=== PATIENT | female | born 1955 | race African-American/Black ===

== ENCOUNTER 2017-11-04 20:56 | Inpatient (IN) | payer MEDICARE, OTHER ==
[~2017-11-04] VITALS: Ht 162.6 cm; Wt 81.3 kg
[~2017-11-04 20:56] MED LIST: 1-ME1LIQ PO; ALLO100T PO; ATOR20TA42 PO; CALC667C PO; FOLITAB6 PO; INSU100V SQ; LOSA100T PO; LYRI75CA PO; METO50TA PO; PANT40IN3 PO; RENATAB PO
[2017-11-04 20:57] VITALS: BP 195/94; PULSE 106; RESP 18; TEMP 98.8; O2SAT 97
[2017-11-04] MEDS ORDERED: SODIUM CHLOR 0.9% 1000 ML INJ 1,000 ML IV ONE (21:33)
[2017-11-04 21:43] VITALS: BP 183/91; PULSE 103; RESP 16; TEMP 100.5; O2SAT 94
--- NOTE | 2017-11-04 21:50 | PD ---
HPI Chief Complaint: Dizziness Time Seen by Provider: 21:22 Travel History International Travel<30 days: No Contact w/Intl Traveler<30days: No Traveled to known affect area: No History of Present Illness HPI 62-year-old female with end-stage renal disease on hemodialysis Monday complains of increased dizziness for approximately 2 weeks. Patient states that she does not believe that her blood is getting "completely clean" and she has felt off balance with standing. Patient states that the sensation lasts for a couple seconds and goes away. She states she is able to perform her ADLs but is having increased difficulty. States within the last week she has had episodes of diarrhea after eating and therefore she does not want to eat or drink as usual. In addition, patient states that she has had a lump on her right butt cheek approximately 2 weeks. States this lump is painful to palpation and is having difficulty with sitting because of the pain. Denies fevers or chills. Denies pain with defecation. States this started off small but has increased in size and become more painful. Patient follows Dr. Verma for her nephrology and her primary care physician will be Dr. Abbott. [facility] Past Medical History Hx Anticoagulant Therapy: No (heparin flush after dialysis) Cancer: No Cardiovascular Problems: Yes High Cholesterol: Yes Chemotherapy: No Cerebrovascular Accident: No Diabetes: Yes Patient Takes Glucophage: No Dialysis: Yes (HD MWF) Endocrine: Yes Gastrointestinal Disorders: Yes Genitourinary: No Hepatitis: No Hiatal Hernia: No Hypertension: Yes Immune Disorder: No Medical other: Yes (GAMALIEL FILTER, HX DVT GOUT) Musculoskeletal: No Neurologic: No Psychiatric: No Reproductive: No Respiratory: No Immunizations Current: Yes Thyroid Disease: No Tubal Ligation: Yes Past Surgical History Abdominal Surgery: No Body Medical Devices: GREENFILED FILTER, VENOUS GRAFT Cardiac Surgery: No Endocrine Surgery: No Eye Surgery: Yes (BILATERAL CATARACT SURGERY) Gynecologic Surgery: Yes (TUBAL LIGATION) Hysterectomy: No Joint Replacement: No Pacemaker: No Thoracic Surgery: No Other Surgery: Yes (cyst NECK, MAURISIO FISTULA) Social History Alcohol Use: No Tobacco Use: No Substance Use: No Allergies-Medications (Allergen,Severity, Reaction): Coded Allergies: Sulfa (Sulfonamide Antibiotics) (Unverified Allergy, Severe, SWELLING, HIVES, 11/04/17) Uncoded Allergies: ADHESIVE TAPE (Allergy, Intermediate, REMOVES SKIN, 01/15/14) CONFIRMED 01/15/14 Reported Meds & Prescriptions Reported Meds & Active Scripts Active Review of Systems Except as stated in HPI: all other systems reviewed are Neg Physical Exam Narrative GENERAL: Well-developed well-nourished in no apparent distress, leaning on her right side SKIN: Focused skin assessment warm/dry. Right-sided arm shunt Left mid buttocks and gluteal fold- area of induration approximately 7 cm, 1 cm area of fluctuance with central puncta. TTP. No obvious extension into the anus. HEAD: Atraumatic. Normocephalic. EYES: Pupils equal and round. No scleral icterus. No injection or drainage. ENT: No nasal bleeding or discharge. Mucous membranes pink and moist. NECK: Trachea midline. No JVD. No lymphadenopathy CARDIOVASCULAR: Regular rate and rhythm. No murmur appreciated. RESPIRATORY: No accessory muscle use. Clear to auscultation. Breath sounds equal bilaterally. GASTROINTESTINAL: Abdomen soft, non-tender, nondistended. MUSCULOSKELETAL: No obvious deformities. No clubbing. No cyanosis. No edema. NEUROLOGICAL: Awake and alert. No obvious cranial nerve deficits. Motor grossly within normal limits. Normal speech. PSYCHIATRIC: Appropriate mood and affect; insight and judgment normal. Data Data Last Documented VS Vital Signs Date Time Temp Pulse Resp B/P (MAP) Pulse Ox O2 Delivery O2 Flow Rate FiO2 11/04/17 21:43 100.5 103 16 183/91 (121) 94 Room Air Orders Orders Electrocardiogram (11/04/17 21:33) Complete Blood Count With Diff (11/04/17 21:33) Comprehensive Metabolic Panel (11/04/17 21:33) Magnesium (Mg) (11/04/17 21:33) Ckmb (Isoenzyme) Profile (11/04/17 21:33) Troponin I (11/04/17 21:33) Urinalysis - C+S If Indicated (11/04/17 21:33) Chest, Single Ap (11/04/17 21:33) Ct Brain W/O Iv Contrast(Rout) (11/04/17 21:33) Sodium Chlor 0.9% 1000 Ml Inj (Ns 1000 M (11/04/17 21:33) Influenzae A/B Antigen (11/04/17 21:50) Lactic Acid (11/04/17 21:50) Blood Culture (11/04/17 21:50) Wound Culture And Gram Stain (11/04/17 22:50) Losartan (Cozaar) (11/04/17 23:15) Amlodipine (Norvasc) (11/04/17 23:15) Acetaminophen (Tylenol) (11/04/17 23:15) Consult Nephrology (11/04/17 ) Metoprolol Tartrate (Lopressor) (11/04/17 23:15) Bedside Glucose MICHAEL.CSUGAR (11/04/17 23:12) Blood Glucose Goal (Criteria) (11/04/17 23:12) Hypoglycemia 70 Mg/Dl Or < (11/04/17 23:12) Notify Dr: Other (11/04/17 23:12) Dextrose 50% In Jason (Vial) Inj (D50w (Vi (11/04/17 23:15) Glucagon Inj (Glucagon Inj) (11/04/17 23:15) Insulin Aspart Supplemtl Scale (Novolog (11/05/17 08:00) Admit To Inpatient (11/04/17 ) Vital Signs (Adult) Q4H (11/04/17 23:12) Activity Oob Ad Sunshine (11/04/17 23:12) Manager Personnel Selection / Telemetry .CONTINUOUS (11/04/17 23:12) Intake + Output MICHAEL.QSHIFT (11/04/17 23:12) Diet Heart Healthy (11/05/17 Breakfast) Sodium Chloride 0.9% Flush (Ns Flush) (11/04/17 23:15) Sodium Chloride 0.9% Flush (Ns Flush) (11/05/17 09:00) Ondansetron Inj (Zofran Inj) (11/04/17 23:15) Comprehensive Metabolic Panel (11/05/17 06:00) Complete Blood Count With Diff (11/05/17 06:00) Heparin Inj (Heparin Inj) (11/05/17 09:00) Acetaminophen (Tylenol) (11/04/17 23:15) Acetamin-Hydrocod 325-5 Mg ([place] 5-325 (11/04/17 23:15) Acetamin-Hydrocod 325-10 Mg ([place] 10-32 (11/04/17 23:15) Docusate Sodium-Senna (Dayan-Colace) (11/05/17 09:00) Magnesium Hydroxide Liq (Milk Of Magnesi (11/04/17 23:15) Sennosides (Senokot) (11/04/17 23:15) Bisacodyl Supp (Dulcolax Supp) (11/04/17 23:15) Lactulose Liq (Lactulose Liq) (11/04/17 23:15) Inpatient Certification (11/04/17 ) Cefepime Inj (Maxipime Inj) (11/05/17 09:00) Vancomycin Inj (Vancomycin Inj) (11/04/17 23:15) Piperacil-Tazo 3.375 Gm Premix (Zosyn 3. (11/04/17 23:15) Admit Order (Ed Use Only) (11/04/17 ) Labs Laboratory Tests Test 11/04/17 21:40 11/04/17 21:50 White Blood Count 13.5 TH/MM3 Red Blood Count 4.29 MIL/MM3 Hemoglobin 12.2 GM/DL Hematocrit 39.3 % Mean Corpuscular Volume 91.6 FL Mean Corpuscular Hemoglobin 28.4 PG Mean Corpuscular Hemoglobin Concent 31.0 % Red Cell Distribution Width 15.9 % Platelet Count 229 TH/MM3 Mean Platelet Volume 9.4 FL Neutrophils (%) (Auto) 84.9 % Lymphocytes (%) (Auto) 4.3 % Monocytes (%) (Auto) 9.6 % Eosinophils (%) (Auto) 0.7 % Basophils (%) (Auto) 0.5 % Neutrophils # (Auto) 11.4 TH/MM3 Lymphocytes # (Auto) 0.6 TH/MM3 Monocytes # (Auto) 1.3 TH/MM3 Eosinophils # (Auto) 0.1 TH/MM3 Basophils # (Auto) 0.1 TH/MM3 CBC Comment DIFF FINAL Differential Comment Blood Urea Nitrogen 35 MG/DL Creatinine 9.00 MG/DL Random Glucose 362 MG/DL Total Protein 7.9 GM/DL Albumin 3.0 GM/DL Calcium Level 8.1 MG/DL Magnesium Level 2.0 MG/DL Alkaline Phosphatase 158 U/L Aspartate Amino Transf (AST/SGOT) 19 U/L Alanine Aminotransferase (ALT/SGPT) 31 U/L Total Bilirubin 0.6 MG/DL Sodium Level 130 MEQ/L Potassium Level 3.8 MEQ/L Chloride Level 91 MEQ/L Carbon Dioxide Level 30.1 MEQ/L Anion Gap 9 MEQ/L Estimat Glomerular Filtration Rate 5 ML/MIN Total Creatine Kinase 76 U/L Troponin I 0.06 NG/ML Lactic Acid Level 2.0 mmol/L MDM Medical Decision Making Medical Screen Exam Complete: Yes Emergency Medical Condition: Yes Differential Diagnosis Dehydration, diarrhea, abscess Narrative Course 62-year-old female with end-stage renal disease on hemodialysis MWF complains of increased dizziness for approximately 2 weeks. Patient states that she does not believe that her blood is getting "completely clean" and she has felt off balance with standing. Patient states that the sensation lasts for a couple seconds and goes away. She states she is able to perform her ADLs but is having increased difficulty. She describes her dizziness as her 'head spinning ' that is persistent even throughout ambulation. Patient sits down and the spinning reduce slightly. States within the last week she has had multiple episodes of nonbloody diarrhea after eating and therefore she does not want to eat or drink as usual. Denies hospital visits, recent antibiotic use. Says she has been going to her dialysis treatments regularly. In addition, patient states that she has had a lump on her right butt cheek approximately 2 weeks. States this lump is painful to palpation and is having difficulty with sitting because of the pain. Denies fevers or chills. Denies nausea or vomiting. Denies pain with defecation. States this lesions started off small but has increased in size and become more painful over the last week. Denies discharge from the area. Denies any upper respiratory symptoms. Denies chronic cardiac or pulmonary issues. Patient follows Dr. Jack Verma for her nephrology and her primary care physician will be Dr. Abbott. After further discussion, patient states that she has had a DVT of her lower extremity and had an IVC filter placed. Patient denies chest pain or shortness of breath today. Vital signs- mild tachycardia at 106. Mild temperature at 100.5. Tylenol administered. Suspect her symptoms are secondary to mild dehydration and possible upper respiratory infection. I did not notice symptoms of rhinorrhea or cough while in the room but the nurse noted that the patient has been coughing occasionally while in the emergency department. Influenza test negative. Right glut/ buttocks- Incision and drainage performed in the emergency department. Advised of wound care. Patient received metoprolol 50 mg of losartan 100 mg in the emergency department today as she is tachycardic and mildly hypertensive. This is also her evening dose of medications. I will start vancomycin and Zosyn for potential development of sepsis. She has leukocytosis at 13.5, mildly tachycardic, and low-grade fever. Note that she produces very little urine and I was unable to obtain a sample today in the ED. Patient will be admitted to observation for dizziness, hyponatremia, hyperglycemia, abscess, r/o sepsis. Procedures Procedure Narrative INCISION AND DRAINAGE OF ABSCESS: The area was prepped and was sterilely draped. A subcutaneous wheal of 1 % Xylocaine without epinephrine with a total number 2 mL was used to anesthetize the area properly. A number 11 scalpel was used to make a 5 mm incision across the area of the abscess. The abscess was drained, complex loculations were broken down, and irrigated with normal saline. Cultures were obtained. Quarter inch iodoform packing was placed in the wound. Sterile dressing applied. Patient advised to have packing removed in two days. Diagnosis Primary Impression: End stage renal disease on dialysis Additional Impressions: Abscess Hyponatremia Dizziness Hyperglycemia Admitting Information Admitting Physician Requests: Admit Additional Instructions: Return to the emergency department for when check in 24 hours. Keep area clean and dry. You may bathe as normal after 24 hours. You may use [id number] triple antibiotic ointments for your injury daily. Change dressings daily. If bleeding starts again, applied pressure. If he developed increased redness, swelling, or pain return to the emergency department. Condition: Stable Tammie Delgadillo Nov 04, 2017 21:50
[2017-11-04 22:13] LABS: AUTOMATED NEUTROPHIL # 11.4 TH/MM3 (1.8-7.7); BASOPHIL # 0.1 TH/MM3 (0-0.2); BASOPHIL % 0.5 % (0.0-2.0); EOSINOPHIL # 0.1 TH/MM3 (0-0.4); EOSINOPHIL % 0.7 % (0.0-4.0); HEMATOCRIT 39.3 % (35.0-46.0); HEMOGLOBIN 12.2 GM/DL (11.6-15.3); LYMPH % 4.3 % (9.0-44.0); LYMPHOCYTE # 0.6 TH/MM3 (1.0-4.8); MEAN CELL VOLUME 91.6 FL (80.0-100.0); MEAN CORPUSCULAR HEMOGLOBIN 28.4 PG (27.0-34.0); MEAN PLATELET VOLUME 9.4 FL (7.0-11.0); MONO % 9.6 % (0.0-8.0); MONOCYTE # 1.3 TH/MM3 (0-0.9); NEUT % 84.9 % (16.0-70.0); PLATELET COUNT 229 TH/MM3 (150-450); RED BLOOD COUNT 4.29 MIL/MM3 (4.00-5.30); RED CELL DISTRIBUTION WIDTH 15.9 % (11.6-17.2); WHITE BLOOD COUNT 13.5 TH/MM3 (4.0-11.0)
--- NOTE | 2017-11-04 22:20 | RADRPT ---
EXAM DATE/TIME: 11/04/2017 21:52 [facility] COMPARISON: CHEST SINGLE AP, August 12, 2015, 23:36. INDICATIONS : Syncopal Episode, High Blood Pressure MEDICAL HISTORY : Renal disease, end stage. Hypertension Diabetes mellitus type II. Dialysis, Deep Vein Thrombosis SURGICAL HISTORY : None. Zoya Filter, MAURISIO Fistula ENCOUNTER: Initial ACUITY: 1 day PAIN SCORE: 0/10 LOCATION: Bilateral chest FINDINGS: A single view of the chest demonstrates the lungs to be symmetrically aerated without evidence of mas s, infiltrate or effusion. The cardiomediastinal contours are unremarkable. Osseous structures are intact. Right subclavian stent present. CONCLUSION: No evidence of acute cardiopulmonary disease. Maycol Anand MD on November 04, 2017 at 22:16 Board Certified Radiologist. This report was verified electronically.
--- NOTE | 2017-11-04 22:36 | RADRPT ---
EXAM DATE/TIME: 11/04/2017 22:15 [facility] COMPARISON: No previous studies available for comparison. INDICATIONS : Dizziness. RADIATION DOSE: 39.12 CTDIvol (mGy) MEDICAL HISTORY : Hypertension. Cardiovascular disease SURGICAL HISTORY : Tubal ligation. ENCOUNTER: Initial ACUITY: 1 day PAIN SCALE: 3/10 LOCATION: cranial TECHNIQUE: Multiple contiguous axial images were obtained of the head. Using automated exposure control and adj ustment of the mA and/or kV according to patient size, radiation dose was kept as low as reasonably a chievable to obtain optimal diagnostic quality images. DICOM format image data is available electro nically for review and comparison. FINDINGS: CEREBRUM: The ventricles are normal for age. No evidence of midline shift, mass lesion, hemorrhage or acute in farction. No extra-axial fluid collections are seen. POSTERIOR FOSSA: The cerebellum and brainstem are intact. The 4th ventricle is midline. The cerebellopontine angle i s unremarkable. EXTRACRANIAL: The visualized portion of the orbits is intact. SKULL: The calvaria is intact. No evidence of skull fracture. CONCLUSION: Negative noncontrast head CT. Maycol Anand MD on November 04, 2017 at 22:33 Board Certified Radiologist. This report was verified electronically.
[2017-11-04 22:37] LABS: AST (GOT) 19 U/L (15-37); BICARBONATE 30.1 MEQ/L (21.0-32.0); BLOOD UREA NITROGEN 35 MG/DL (7-18); CALCIUM 8.1 MG/DL (8.5-10.1); CHLORIDE 91 MEQ/L (98-107); GLOMERULAR FILTRATION RATE 5 ML/MIN (>89); GLUCOSE,RANDOM 362 MG/DL (74-106); SODIUM (NA) 130 MEQ/L (136-145)
[2017-11-04 22:38] LABS: ALT (GPT) 31 U/L (10-53)
[2017-11-04 22:42] LABS: ALKALINE PHOSPHATASE 158 U/L (45-117); TOTAL BILIRUBIN ADULT 0.6 MG/DL (0.2-1.0); TOTAL PROTEIN 7.9 GM/DL (6.4-8.2); TROPONIN I 0.06 NG/ML (0.02-0.05)
[2017-11-04] MEDS ORDERED: LOSARTAN 50 MG TAB PO ONE (23:15)
[2017-11-04] MEDS ORDERED: ACETAMINOPHEN/HYDROcodone 325 MG/10 MG TAB PO PRN (23:15)
[2017-11-04] MEDS ORDERED: SODIUM CHLORIDE 0.9% FLUSH 10 ML FLUSH IV FLUSH PRN (23:15)
[2017-11-04] MEDS ORDERED: METOPROLOL TARTRATE 50 MG TAB PO ONE (23:15)
[2017-11-04] MEDS ORDERED: SENNOSIDES 8.6 MG TAB PO PRN (23:15)
[2017-11-04] MEDS ORDERED: ONDANSETRON HCL 4 MG/2 ML VIAL IVP PRN (23:15)
[2017-11-04] MEDS ORDERED: BISACODYL 10 MG SUPP RECTAL PRN (23:15)
[2017-11-04] MEDS ORDERED: PIPERACIL-TAZO 3.375 GM PREMIX 50 ML IV ONE (23:15)
[2017-11-04] MEDS ORDERED: DEXTROSE 50% IN WATER 50 ML VIAL(D50) IV PUSH PRN (23:15)
[2017-11-04] MEDS ORDERED: ACETAMINOPHEN 325 MG TAB PO PRN (23:15)
[2017-11-04] MEDS ORDERED: LACTULOSE SYRUP 20 GM/30 ML CUP PO PRN (23:15)
[2017-11-04] MEDS ORDERED: ACETAMINOPHEN 325 MG TAB PO ONE (23:15)
[2017-11-04] MEDS ORDERED: GLUCAGON 1 MG/ML VIAL OTHER PRN (23:15)
[2017-11-04] MEDS ORDERED: VANCOMYCIN INJ 1,500 MG in SODIUM CHLORID 0.9% 500 ML INJ 500 ML IV ONE (23:15)
[2017-11-04] MEDS ORDERED: MAGNESIUM HYDROXIDE SUSP 30 ML CUP PO PRN (23:15)
--- NOTE | 2017-11-04 23:16 | HHI.HP ---
[facility] Primary Care Physician Admission Diagnosis Diagnoses: (1) Sepsis Diagnosis: Principal (2) Gluteal abscess Diagnosis: Principal (3) Dizziness and giddiness Diagnosis: Principal (4) Elevated troponin Diagnosis: Principal (5) ESRD (end stage renal disease) on dialysis Diagnosis: Principal (6) HTN (hypertension) Diagnosis: Principal (7) DM (diabetes mellitus) Diagnosis: Principal Travel History International Travel<30 Days: No Contact w/Intl Traveler <30 Da: No Traveled to Known Affected Are: No History of Present Illness This is a 62-year-old female with a PMH of HTN, DM, h/o DVT s/p IVC Filter, Gout and ESRD on HD // who presented to the ER w/ complaints of generalized weakness, dizziness, and "lump" on buttock x2 wks. States dizziness worse w/ ambulation, feels "off balance". No fall or injury reported. No nausea, vomiting or headache, but reports decreased PO intake. States lump on buttock producing severe pain, constant, sharp, 10/10, non-radiating, worse w/ palpation. No fever or chills. On arrival, BP 195/94, HR 106, O2 sat 97% on RA , Temp 100.5. WBC 13.5. Creatinine 9.0, previously 3.57 on 08/12/15. Lactic Acid normal. Troponin 0.06. CXR with no acute findings. CT Head negative. S/ p I&D of gluteal abscess in ER. Blood Cultures, Vanc/Zosyn IV given. Follows w / Dr. Verma for Nephrology. Review of Systems Except as stated in HPI: all other systems reviewed are Neg ROS: 14 point review of systems otherwise negative. Past Family Social History Past Medical History PMH: HTN, DM, h/o DVT s/p IVC Filter, Gout and ESRD on HD /W/ Past Surgical History IVC Filter, Cataract Surgery, Tubal Ligation, RUE Fistula Allergies: Coded Allergies: Sulfa (Sulfonamide Antibiotics) (Unverified Allergy, Severe, SWELLING, HIVES, 11/04/17) Uncoded Allergies: ADHESIVE TAPE (Allergy, Intermediate, REMOVES SKIN, 01/15/14) CONFIRMED 01/15/14 Family History PAST FAMILY HISTORY: Reviewed. No h/o DM or CAD Social History PAST SOCIAL HISTORY: Negative for alcohol, tobacco or drugs. Physical Exam Vital Signs Vital Signs Date Time Temp Pulse Resp B/P (MAP) Pulse Ox O2 Delivery O2 Flow Rate FiO2 11/04/17 21:43 100.5 103 16 183/91 (121) 94 Room Air 11/04/17 20:57 98.8 106 18 195/94 (127) 97 Room Air Physical Exam PE: GENERAL: Very pleasant middle-aged white female in no acute distress, however appears weak. HEENT: PERRLA, EOMI. No scleral icterus or conjunctival pallor. No lid lag or facial droop. CARDIOVASCULAR: Regular rate and rhythm. No obvious murmurs to auscultation. No chest tenderness to palpation. RESPIRATORY: No obvious rhonchi or wheezing. Clear to auscultation. Breath sounds equal bilaterally. GASTROINTESTINAL: Abdomen soft, non-tender, nondistended. BS normal. MUSCULOSKELETAL: Extremities without clubbing, cyanosis, or edema. No obvious deformities. Left gluteal abscess s/p I&D NEUROLOGICAL: Awake, alert and oriented x4. No focal neurologic deficits. Moving both upper and lower extremities spontaneously. Laboratory Laboratory Tests Test 11/04/17 21:40 11/04/17 21:50 White Blood Count 13.5 Red Blood Count 4.29 Hemoglobin 12.2 Hematocrit 39.3 Mean Corpuscular Volume 91.6 Mean Corpuscular Hemoglobin 28.4 Mean Corpuscular Hemoglobin Concent 31.0 Red Cell Distribution Width 15.9 Platelet Count 229 Mean Platelet Volume 9.4 Neutrophils (%) (Auto) 84.9 Lymphocytes (%) (Auto) 4.3 Monocytes (%) (Auto) 9.6 Eosinophils (%) (Auto) 0.7 Basophils (%) (Auto) 0.5 Neutrophils # (Auto) 11.4 Lymphocytes # (Auto) 0.6 Monocytes # (Auto) 1.3 Eosinophils # (Auto) 0.1 Basophils # (Auto) 0.1 CBC Comment DIFF FINAL Differential Comment Blood Urea Nitrogen 35 Creatinine 9.00 Random Glucose 362 Total Protein 7.9 Albumin 3.0 Calcium Level 8.1 Magnesium Level 2.0 Alkaline Phosphatase 158 Aspartate Amino Transf (AST/SGOT) 19 Alanine Aminotransferase (ALT/SGPT) 31 Total Bilirubin 0.6 Sodium Level 130 Potassium Level 3.8 Chloride Level 91 Carbon Dioxide Level 30.1 Anion Gap 9 Estimat Glomerular Filtration Rate 5 Total Creatine Kinase 76 Troponin I 0.06 Lactic Acid Level 2.0 Date/Time Source Procedure Growth Status 11/04/17 21:55 Blood Peripheral Aerobic Blood Culture Pending Received 11/04/17 21:55 Blood Peripheral Anaerobic Blood Culture Pending Received 11/04/17 21:50 Nasal Aspirate Influenza Types A,B Antigen (NEY) - Final NEGATIVE FOR FLU A AND B ANTIGEN.... Complete Result Diagram: 11/04/17213911/04/172139 Caprini VTE Risk Assessment Caprini VTE Risk Assessment: Mod/High Risk (score >= 2) Caprini Risk Assessment Model Point Value = 1 Point Value = 2 Point Value = 3 Point Value = 5 Age 41-60 Minor surgery BMI > 25 kg/m2 Swollen legs Varicose veins or History of unexplained or recurrent spontaneous Oral contraceptives or hormone replacement Sepsis (< 1 month) Serious lung disease, including pneumonia (< 1 month) Abnormal pulmonary function Acute myocardial infarction Congestive heart failure (< 1 month) History of inflammatory bowel disease Medical patient at bed rest Age 61-74 Arthroscopic surgery Major open surgery (> 45 min) Laparoscopic surgery (> 45 min) Malignancy Confined to bed (> 72 hours) Immobilizing plaster cast Central venous access Age >= 75 History of VTE Family history of VTE Factor V Leiden Prothrombin [id number] Lupus anticoagulant Anticardiolipin antibodies Elevated serum homocysteine Heparin-induced thrombocytopenia Other congenital or acquired thrombophilia Stroke (< 1 month) Elective arthroplasty Hip, pelvis, or leg fracture Acute spinal cord injury (< 1 month) Prophylaxis Regimen Total Risk Factor Score Risk Level Prophylaxis Regimen 0-1 Low Early ambulation 2 Moderate Order ONE of the following: *Sequential Compression Device (SCD) *Heparin 5000 units SQ BID 3-4 Higher Order ONE of the following medications: *Heparin 5000 units SQ TID *Enoxaparin/Lovenox 40 mg SQ daily (WT < 150 kg, CrCl > 30 mL/min) *Enoxaparin/Lovenox 30 mg SQ daily (WT < 150 kg, CrCl > 10-29 mL/min) *Enoxaparin/Lovenox 30 mg SQ BID (WT < 150 kg, CrCl > 30 mL/min) AND/OR *Sequential Compression Device (SCD) 5 or more Highest Order ONE of the following medications: *Heparin 5000 units SQ TID (Preferred with Epidurals) *Enoxaparin/Lovenox 40 mg SQ daily (WT < 150 kg, CrCl > 30 mL/min) *Enoxaparin/Lovenox 30 mg SQ daily (WT < 150 kg, CrCl > 10-29 mL/min) *Enoxaparin/Lovenox 30 mg SQ BID (WT < 150 kg, CrCl > 30 mL/min) AND *Sequential Compression Device (SCD) Assessment and Plan Problem List: (1) Sepsis ICD Code: A41.9 - Sepsis, unspecified organism (2) Gluteal abscess ICD Code: L02.31 - Cutaneous abscess of buttock (3) Elevated troponin ICD Code: R74.8 - Abnormal levels of other serum enzymes (4) HTN (hypertension) ICD Code: I10 - Essential (primary) hypertension (5) Dizziness ICD Code: R42 - Dizziness and giddiness Status: Acute (6) ESRD (end stage renal disease) on dialysis ICD Code: N18.6 - End stage renal disease; Z99.2 - Dependence on renal dialysis (7) DM (diabetes mellitus) ICD Code: E11.9 - Type 2 diabetes mellitus without complications Assessment and Plan A/P: 1. Sepsis: Temp 100.5, HR 103, WBC 13.5, Source-Gluteal Abscess, s/p I&D, Blood Cultures, Vanc/Zosyn in ER. Follow up cultures, continue w/ IV Abx. Hold IVF in light of ESRD. 2. Gluteal Abscess: S/p I&D in ER, Consult Wound Management for dressing changes/wound healing. Continue w/ IV Abx as above. 3. ESRD on HD: M/W/F, follows w/ Dr. Verma as outpatient, last HD on Monday, states was told at dialysis center "blood isn't getting cleaned". Will consult Dr. Verma to resume HD and assist w/ Vanco dosing. 4. Elevated Trop: Trop 0.06, no c/o chest pain, likely related to renal failure, however R/o ACS. Check serial cardiac enzymes for trend, place on telemetry. Resume home Statin, Metoprolol. Start ASA 5. Dizziness: Likely secondary to acute infection/sepsis. CT Head w/ no acute findings, images reviewed by me. Check serial cardiac enzymes to R/o ACS as above. 6. HTN: Uncontrolled. BP 195/94, HR 103. Resume home medications, monitor BP. 7. DM: Sliding scale w/ Accu-Cheks. Resume home Insulin. 8. DVT Prophylaxis: Heparin sq 9. Social work for d/c planning as needed. 10. Case discussed w/ ER physician at length, labs/records/imaging reviewed by me. Physician Certification 2 Midnight Certification Type: Admission for Inpatient Services Order for Inpatient Services The services are ordered in accordance with Medicare regulations or non- Medicare payer requirements, as applicable. In the case of services not specified as inpatient-only, they are appropriately provided as inpatient services in accordance with the 2-midnight benchmark. Estimated LOS (days): 2 days is the estimated time the patient will need to remain in the hospital, assuming treatment plan goals are met and no additional complications. Post-Hospital Plan: Not yet determined Carlee Mendieta MD Nov 04, 2017 23:16
[2017-11-05] VITALS (10 sets, daily range): BP systolic 123–155; BP diastolic 58–84; PULSE 63–101; RESP 16–22; TEMP 97.9–99.3; O2SAT 94–100
[2017-11-05] MEDS ORDERED: phoslo PO (01:08)
[2017-11-05] MEDS ORDERED: ALLO100T PO (01:08)
[2017-11-05] MEDS ORDERED: PANT40TA3 PO (01:08)
[2017-11-05] MEDS ORDERED: CINA30 PO (01:08)
[2017-11-05] MEDS ORDERED: METO25TA3 PO (01:08)
[2017-11-05] MEDS ORDERED: ATOR20TA15 PO (01:08)
[2017-11-05] MEDS ORDERED: RENACAP2 PO (01:08)
[2017-11-05] MEDS ORDERED: INSU100V SQ (01:08)
[2017-11-05] MEDS ORDERED: LYRI75CA PO (02:25)
[2017-11-05 07:44] LABS: BASOPHIL # 0.1 TH/MM3 (0-0.2); BASOPHIL % 0.4 % (0.0-2.0); EOSINOPHIL # 0.1 TH/MM3 (0-0.4); EOSINOPHIL % 0.5 % (0.0-4.0); HEMATOCRIT 33.8 % (35.0-46.0); HEMOGLOBIN 10.7 GM/DL (11.6-15.3); LYMPH % 3.7 % (9.0-44.0); LYMPHOCYTE # 0.6 TH/MM3 (1.0-4.8); MEAN CELL VOLUME 89.6 FL (80.0-100.0); MEAN CORPUSCULAR HEMOGLOBIN 28.2 PG (27.0-34.0); MEAN CORPUSCULAR HGB CONC 31.5 % (32.0-36.0); MEAN PLATELET VOLUME 9.7 FL (7.0-11.0); MONO % 10.4 % (0.0-8.0); MONOCYTE # 1.6 TH/MM3 (0-0.9); PLATELET COUNT 208 TH/MM3 (150-450); RED BLOOD COUNT 3.77 MIL/MM3 (4.00-5.30); WHITE BLOOD COUNT 15.3 TH/MM3 (4.0-11.0)
[2017-11-05 08:18] LABS: ALBUMIN 2.5 GM/DL (3.4-5.0); ALT (GPT) 25 U/L (10-53); AST (GOT) 15 U/L (15-37); BICARBONATE 24.3 MEQ/L (21.0-32.0); BLOOD UREA NITROGEN 36 MG/DL (7-18); CALCIUM 7.8 MG/DL (8.5-10.1); CHLORIDE 98 MEQ/L (98-107); CREATININE 9.34 MG/DL (0.50-1.00); GLOMERULAR FILTRATION RATE 5 ML/MIN (>89); GLUCOSE,RANDOM 267 MG/DL (74-106); SODIUM (NA) 133 MEQ/L (136-145)
[2017-11-05 08:20] LABS: ALKALINE PHOSPHATASE 122 U/L (45-117); TOTAL BILIRUBIN ADULT 0.8 MG/DL (0.2-1.0); TOTAL PROTEIN 6.8 GM/DL (6.4-8.2)
--- NOTE | 2017-11-05 08:40 | HHI.PR ---
Subjective Remarks Patient in bed, sleepy. Has some back pain. No fever or chills overnight. Says she is able to eat some. Has decreased appetite. Denies chest pain or sob. Objective Vitals Vital Signs Date Time Temp Pulse Resp B/P (MAP) Pulse Ox O2 Delivery O2 Flow Rate FiO2 11/05/17 04:00 89 16 137/69 (91) 97 Room Air 11/05/17 02:00 81 16 128/64 (85) 94 Room Air 11/05/17 00:00 101 16 155/74 (101) 95 Room Air 11/04/17 21:43 100.5 103 16 183/91 (121) 94 Room Air 11/04/17 20:57 98.8 106 18 195/94 (127) 97 Room Air I/O 11/04/17 11/04/17 11/04/17 11/05/17 11/05/17 11/05/17 07:00 15:00 23:00 07:00 15:00 23:00 Intake Total 1050 ml Balance 1050 ml Intake IV Total 1050 ml Result Diagram: 11/05/17 0710 11/05/17 0710 Imaging Last Impressions Head CT 11/04/172132 Signed Impressions: Service Date/Time: Saturday, November 04, 2017 22:15 - CONCLUSION: Negative noncontrast head CT. Maycol Anand MD Chest X-Ray 11/04/172132 Signed Impressions: Service Date/Time: Saturday, November 04, 2017 21:52 - CONCLUSION: No evidence of acute cardiopulmonary disease. Maycol Anand MD Objective Remarks GENERAL: Very pleasant middle-aged white female in no acute distress, appears weak and sleepy. HEENT: PERRLA, EOMI. No scleral icterus or conjunctival pallor. No lid lag or facial droop. CARDIOVASCULAR: Regular rate and rhythm. No obvious murmurs to auscultation. No chest tenderness to palpation. RESPIRATORY: No obvious rhonchi or wheezing. Clear to auscultation. Breath sounds equal bilaterally. GASTROINTESTINAL: Abdomen soft, non-tender, nondistended. BS normal. MUSCULOSKELETAL: Extremities without clubbing, cyanosis, or edema. No obvious deformities. Left gluteal abscess s/p I&D NEUROLOGICAL: Awake, alert and oriented x4. No focal neurologic deficits. Moving both upper and lower extremities spontaneously. A/P Problem List: (1) Sepsis ICD Code: A41.9 - Sepsis, unspecified organism (2) Gluteal abscess ICD Code: L02.31 - Cutaneous abscess of buttock (3) Elevated troponin ICD Code: R74.8 - Abnormal levels of other serum enzymes (4) HTN (hypertension) ICD Code: I10 - Essential (primary) hypertension (5) Dizziness ICD Code: R42 - Dizziness and giddiness Status: Acute (6) ESRD (end stage renal disease) on dialysis ICD Code: N18.6 - End stage renal disease; Z99.2 - Dependence on renal dialysis (7) DM (diabetes mellitus) ICD Code: E11.9 - Type 2 diabetes mellitus without complications Assessment and Plan 1. Sepsis: Temp 99.0, HR 123, Source-Left Knee. S/p Blood Cultures, Vanc/ Zosyn. Follow up cultures, continue IV Abx, IVF for hydration. 2. Left Knee Septic Arthritis: S/p I&D Left Knee by Dr. Coates 10/31/17 for septic arthritis, synovial fluid cultures 10/21/17 +MSSA, s/p Vanc/Zosyn during admission, pt was to have outpatient follow up and IV antibiotics however non- compliant. Continue w/ broad spectrum IV Abx, follow up cultures-likely de- escalate treatment, Consult ID for further recommendations on IV Abx, Consult Ortho for further eval/surgical intervention for I&D. 3. HTN: Uncontrolled. BP 183/100, HR 123, likely related to pain and cocaine abuse. Start Clonidine 0.2mg q8h, monitor BP. BP better controlled. HR better controlled. Continue monitoring. 4. IVDU: Ongoing. Admits to Heroin/Cocaine, recent ingestion. Ativan prn for withdrawal. 5. Alcohol Abuse: Drinks 12-14 beers daily. High risk for withdrawal. CIWA, Seizure Precautions, MVT/Thiamine/Folate 6. Tobacco Abuse: Smokes 3ppd. NicoDerm prn. DVT Prophylaxis: Mechanical contraindication secondary to LE wound Social work for d/c planning as needed. Romana Ramírez MD Nov 05, 2017 08:40
[2017-11-05] MEDS: SODIUM CHLORIDE 0.9% FLUSH 10 ML FLUSH IV FLUSH SCH ×2 (08:45→21:29)
[2017-11-05] MEDS: CEFEPIME INJ 1,000 MG in SODIUM CHLORIDE 0.9% INJ 100 ML IV SCH (08:45)
[2017-11-05] MEDS: INSULIN ASPART SUPPLEMENTAL SCALE SQ SCH ×5 (08:45→21:28)
[2017-11-05] MEDS: ASPIRIN EC 81 MG TABEC PO SCH (08:45)
[2017-11-05] MEDS: HEPARIN SODIUM - SQ 10,000 UNITS/ML VIAL SQ SCH ×2 (08:46→21:00)
[2017-11-05] MEDS: VITAMIN B CMPLX/VITC/FOLIC AC CAP PO SCH (08:46)
[2017-11-05] MEDS: PANTOPRAZOLE SOD 40 MG DELAYED RELEASE TAB PO SCH (08:46)
[2017-11-05] MEDS: ALLOPURINOL 100 MG TAB PO SCH (08:46)
[2017-11-05] MEDS: METOPROLOL TARTRATE 25 MG TAB PO SCH (08:46)
[2017-11-05] MEDS: DOCUSATE SODIUM 50 MG/SENNA 8.6 MG TAB PO SCH ×2 (08:46→21:00)
[2017-11-05] MEDS ORDERED: METOPROLOL TARTRATE 25 MG TAB PO SCH (09:00)
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
[2017-11-05] MEDS ORDERED: SODIUM CHLOR 0.9% 1000 ML INJ 1,000 ML IV PRN (10:55)
[2017-11-05] MEDS ORDERED: SODIUM CHLOR 0.9% 1000 ML INJ 1,000 ML OTHER PRN ×2 (10:55)
[2017-11-05] MEDS ORDERED: ONDANSETRON HCL 4 MG/2 ML VIAL IV PUSH PRN (11:00)
[2017-11-05] MEDS ORDERED: GENTAMICIN SULFATE (DIALYSIS USE ONLY) 20 MG/2 ML VIAL OTHER PRN (11:00)
[2017-11-05] MEDS ORDERED: HEPARIN SODIUM - IV 10,000 UNITS/10 ML VIAL IV FLUSH PRN (11:00)
[2017-11-05] MEDS ORDERED: ACETAMINOPHEN 325 MG TAB PO PRN (11:00)
[2017-11-05] MEDS ORDERED: HEPARIN SODIUM - IV 10,000 UNITS/10 ML VIAL PRN (11:00)
[2017-11-05] MEDS ORDERED: EPOETIN ALFA 10,000 UNITS/ML VIAL IV PUSH PRN (11:00)
[2017-11-05] MEDS ORDERED: SODIUM CHLORIDE 0.9% FLUSH 10 ML FLUSH IV FLUSH PRN (11:00)
[2017-11-05] MEDS ORDERED: NITROGLYCERIN 0.4 MG SL 25 TABS/BTL SL PRN (11:00)
[2017-11-05] MEDS ORDERED: diphenhydrAMINE HCL 25 MG CAP PO PRN (11:00)
[2017-11-05] MEDS ORDERED: cloNIDine HCL 0.1 MG TAB PO PRN (11:00)
[2017-11-05] MEDS ORDERED: GELATIN 12 MM/7 MM FOAM TOP PRN (11:00)
[2017-11-05] MEDS ORDERED: MANNITOL 12.5 GM/50 ML VIAL IV PRN (11:00)
[2017-11-05] MEDS ORDERED: ALBUMIN 25% INJ 100 ML IV PRN (11:00)
[2017-11-05] MEDS ORDERED: VANCOMYCIN INJ 1,000 MG in SODIUM CHLOR 0.9% 250 ML INJ 250 ML IV SCH (11:00)
--- NOTE | 2017-11-05 16:51 | EKG ---
Date Performed: 11/04/2017 Time Performed: 21:46:16 PTAGE: 62 years EKG: SINUS TACHYCARDIA LEFT VENTRICULAR HYPERTROPHY AND ST-T CHANGE Compared to previous tracing , Left ventricular hypertrophy and repolarization changes are new ABNORMAL ECG NO PREVIOUS TRACING DOCTOR: Karan Bond Interpretating Date/Time 11/05/2017 16:49:41
[2017-11-05] MEDS ORDERED: INSULIN ASPAR PROT 70/30 1,000 UNITS/10 ML VIAL SQ SCH (17:00)
[2017-11-05] MEDS: ACETAMINOPHEN/HYDROcodone 325 MG/5 MG TAB PO PRN ×2 (17:11→21:29)
--- NOTE | 2017-11-05 21:03 | HHI.PR ---
Subjective Remarks Patient in bed says she feels improved since yesterday. No tachycardia. No chest pain . Pain at the left gluteal siyte imprpved after I&D . No fevers or chill overnight. Had some nausea but amanda to keep down some food. Has decreased appetite. No v/d/c. Objective Vitals Vital Signs Date Time Temp Pulse Resp B/P (MAP) Pulse Ox O2 Delivery O2 Flow Rate FiO2 11/05/17 16:18 11/05/17 16:00 99.3 83 18 130/60 (83) 98 11/05/17 15:30 84 22 144/70 (94) Room Air 11/05/17 12:44 100 21 11/05/17 12:05 79 132/70 (90) Room Air 11/05/17 08:10 98.3 63 19 128/84 (99) 97 Room Air 11/05/17 04:00 89 16 137/69 (91) 97 Room Air 11/05/17 02:00 81 16 128/64 (85) 94 Room Air 11/05/17 00:00 101 16 155/74 (101) 95 Room Air 11/04/17 21:43 100.5 103 16 183/91 (121) 94 Room Air I/O 11/04/17 11/04/17 11/04/17 11/05/17 11/05/17 11/05/17 07:00 15:00 23:00 07:00 15:00 23:00 Intake Total 1050 ml 100 ml Balance 1050 ml 100 ml Intake IV Total 1050 ml 100 ml Result Diagram: 11/05/17 0710 11/05/17 0710 Imaging Last Impressions Head CT 11/04/172132 Signed Impressions: Service Date/Time: Saturday, November 04, 2017 22:15 - CONCLUSION: Negative noncontrast head CT. Maycol Anand MD Chest X-Ray 11/04/172132 Signed Impressions: Service Date/Time: Saturday, November 04, 2017 21:52 - CONCLUSION: No evidence of acute cardiopulmonary disease. Maycol Anand MD Objective Remarks GENERAL: Very pleasant middle-aged female in no acute distress, appears weak. HEENT: PERRLA, EOMI. No scleral icterus or conjunctival pallor. No lid lag or facial droop. CARDIOVASCULAR: Regular rate and rhythm. No obvious murmurs to auscultation. No chest tenderness to palpation. RESPIRATORY: No obvious rhonchi or wheezing. Clear to auscultation. Breath sounds equal bilaterally. GASTROINTESTINAL: Abdomen soft, non-tender, nondistended. BS normal. MUSCULOSKELETAL: Extremities without clubbing, cyanosis, or edema. No obvious deformities. Left gluteal abscess s/p I&D NEUROLOGICAL: Awake, alert and oriented x4. No focal neurologic deficits. Moving both upper and lower extremities spontaneously. A/P Problem List: (1) Sepsis ICD Code: A41.9 - Sepsis, unspecified organism (2) Gluteal abscess ICD Code: L02.31 - Cutaneous abscess of buttock (3) Elevated troponin ICD Code: R74.8 - Abnormal levels of other serum enzymes (4) HTN (hypertension) ICD Code: I10 - Essential (primary) hypertension (5) Dizziness ICD Code: R42 - Dizziness and giddiness Status: Acute (6) ESRD (end stage renal disease) on dialysis ICD Code: N18.6 - End stage renal disease; Z99.2 - Dependence on renal dialysis (7) DM (diabetes mellitus) ICD Code: E11.9 - Type 2 diabetes mellitus without complications Assessment and Plan 62-year-old female with a PMH of HTN, DM, h/o DVT s/p IVC Filter, Gout and ESRD on HD / who presented to the ER w/ complaints of generalized weakness, dizziness, and "lump" on LEFT buttock x2 wks. S/p I&D of gluteal abscess in ER. Blood Cultures, Vanc/Zosyn IV given. Follows w/ Dr. Verma for Nephrology. HTN, DM, h/o DVT s/p IVC Filter, Gout and ESRD on HD / Sepsis: Leukocytosis, tachycardia, Source-Left gluteal abscess. S/p Blood Cultures, Continue IV abx Vanc/Zosyn. Follow up cultures. IVF for hydration. HTN: Uncontrolled. BP 195.94. Restart home meds. PRN antihypertensives. Monitor BP. BP better controlled today. Continue monitoring and adjust meds as need. ESRD on HD //. Consult her nephrology H/o DVT s/p IVC filter DM2. Monitor BS accuchecks. ISS. Monitor BS ad adjust meds if need. DVT Prophylaxis: has IVC filter Social work for d/c planning as needed. Romana Ramírez MD Nov 05, 2017 21:03
[2017-11-05] MEDS: ATORVASTATIN 20 MG TAB PO SCH (21:28)
[2017-11-05] MEDS: CINACALCET HYDROCHLORIDE 30 MG TAB PO SCH (21:28)
[2017-11-06] VITALS (8 sets, daily range): BP systolic 126–144; BP diastolic 58–68; PULSE 73–84; RESP 16–18; TEMP 96.2–97.1; O2SAT 95–97
[2017-11-06] MEDS: ACETAMINOPHEN/HYDROcodone 325 MG/5 MG TAB PO PRN (05:22)
[2017-11-06 08:04] LABS: AUTOMATED NEUTROPHIL # 8.4 TH/MM3 (1.8-7.7); BASOPHIL # 0.1 TH/MM3 (0-0.2); BASOPHIL % 0.7 % (0.0-2.0); EOSINOPHIL # 0.3 TH/MM3 (0-0.4); EOSINOPHIL % 2.5 % (0.0-4.0); HEMATOCRIT 37.1 % (35.0-46.0); HEMOGLOBIN 11.9 GM/DL (11.6-15.3); LYMPH % 8.7 % (9.0-44.0); LYMPHOCYTE # 0.9 TH/MM3 (1.0-4.8); MEAN CELL VOLUME 90.2 FL (80.0-100.0); MEAN CORPUSCULAR HEMOGLOBIN 28.9 PG (27.0-34.0); MONO % 10.6 % (0.0-8.0); MONOCYTE # 1.1 TH/MM3 (0-0.9); NEUT % 77.5 % (16.0-70.0); PLATELET COUNT 238 TH/MM3 (150-450); RED BLOOD COUNT 4.11 MIL/MM3 (4.00-5.30); RED CELL DISTRIBUTION WIDTH 15.6 % (11.6-17.2); WHITE BLOOD COUNT 10.8 TH/MM3 (4.0-11.0)
[2017-11-06 08:08] LABS: BICARBONATE 25.1 MEQ/L (21.0-32.0); CALCIUM 8.3 MG/DL (8.5-10.1)
[2017-11-06 08:23] LABS: CREATININE 11.35 MG/DL (0.50-1.00)
[2017-11-06] MEDS: INSULIN ASPART SUPPLEMENTAL SCALE SQ SCH ×4 (08:36→20:05)
[2017-11-06] MEDS: PANTOPRAZOLE SOD 40 MG DELAYED RELEASE TAB PO SCH (09:47)
[2017-11-06] MEDS: VITAMIN B CMPLX/VITC/FOLIC AC CAP PO SCH (09:47)
[2017-11-06] MEDS: METOPROLOL TARTRATE 25 MG TAB PO SCH (09:47)
[2017-11-06] MEDS: CEFEPIME INJ 1,000 MG in SODIUM CHLORIDE 0.9% INJ 100 ML IV SCH (09:47)
[2017-11-06] MEDS: ALLOPURINOL 100 MG TAB PO SCH (09:47)
[2017-11-06] MEDS: DOCUSATE SODIUM 50 MG/SENNA 8.6 MG TAB PO SCH ×2 (09:47→20:04)
[2017-11-06] MEDS: ASPIRIN EC 81 MG TABEC PO SCH (09:47)
[2017-11-06] MEDS: SODIUM CHLORIDE 0.9% FLUSH 10 ML FLUSH IV FLUSH SCH ×2 (09:47→20:04)
[2017-11-06] MEDS: HEPARIN SODIUM - SQ 10,000 UNITS/ML VIAL SQ SCH ×2 (09:48→20:04)
[2017-11-06] MEDS ORDERED: CALC667C PO (10:57)
--- NOTE | 2017-11-06 11:16 | PD.WCN.NOT ---
Wound Consult Description: Wound consult ordered by Dr. Mendieta for left gluteal region Communicated with: Sheron WORTHINGTON [address] [place] [address], Recommendation: 1) Cleanse bilateral Gluteal area with soap and water ,rinse,pat dry. 2) Pack Iodoform 1/4inch into Right gluteal surgical incision using only 1 piece. 3) Cover with Calcium alginate cut to fit wound base secure with dry dressing 4) Change daily or as needed for exudate or dislodgement. Additional Information: Patient was seen today on [address] [place] [address] by commercial real estate underwriter and Sheron WORTHINGTON [address] [place] [address]. Patient was independently able to reposition to prone position.Assessment finding Patient has Cutaneous Abscess hardened ,tender to touch warm erythema ~1cm circumferential around surgical incision.. Scant Serosanguineous drainage noted. Patient was cleansed with warm water and soap, rinsed and pat dry ~3cm Iodoform 1/4 packed into surgical wound measuring 0.6cm x 0.1cm .Covered with calcium alginate cut to fit wound base secure with ABD.Patient tolerated wound care well.Next dressing change 11/07 Nenita Arriola [facility] Nov 06, 2017 11:16
--- NOTE | 2017-11-06 13:04 | HHI.NPPN ---
Subjective Renal Failure: Chronic, End Stage Renal Disease Interval History Due today for dialysis. She is reporting a cough. (Jeannette Terrell) Review of Systems Respiratory Lungs: Cough (Jeannette Terrell) Skin Skin Remarks sacral abscess (Jeannette Terrell) Objective Data Data Vital Signs Date Time Temp Pulse Resp B/P (MAP) Pulse Ox O2 Delivery O2 Flow Rate FiO2 11/06/17 12:00 96.9 75 17 136/68 (90) 97 11/06/17 08:00 97.1 78 16 138/65 (89) 96 11/06/17 04:07 84 11/06/17 04:00 96.7 82 16 126/60 (82) 95 11/06/17 00:31 97.1 75 16 144/65 (91) 97 11/06/17 00:06 73 11/05/17 22:22 71 11/05/17 20:00 97.9 71 16 123/58 (79) 96 11/05/17 16:18 11/05/17 16:00 99.3 83 18 130/60 (83) 98 11/05/17 15:30 84 22 144/70 (94) Room Air (Jeannette Terrell) -: 11/06/17 0621 11/06/17 0621 Imaging Last [address] 11/04/172132 Signed Impressions: Service Date/Time: Saturday, November 04, 2017 22:15 - CONCLUSION: Negative noncontrast head CT. Maycol Anand MD Chest X-Ray 11/04/172132 Signed Impressions: Service Date/Time: Saturday, November 04, 2017 21:52 - CONCLUSION: No evidence of acute cardiopulmonary disease. Maycol Anand MD (Jeannette Terrell) Physical Exam General Appearance: Well Developed, Comfortable (Jeannette Terrell) Eyes Eye Exam: Pupils Equal (Jeannette Terrell) Neck Neck Exam: Neck Supple (Jeannette Terrell) Pulmonary Resp Exam: Clear Bilaterally, Breath Sounds Equal (Jeannette Terrell) Cardiology CV Exam: Good Perfusion (Jeannette Terrell) Gastrointestinal/Abdomen GI Exam: Soft, Non-Tender (Jeannette Terrell) Musculoskeletal MS Exam: Normal Tone, Good Strength (Jeannette Terrell) Integumentary Skin Exam: Warm, Dry (Jeannette Terrell) Extremeties Extremities Exam: No Edema, Pedal Pulses Palpable Extremeties Remarks RUE AVF patent (Jeannette Terrell) Neurologic Neuro Exam: Alert, Awake, Oriented, Speech Clear, Moving All Extremities (Jenanette Terrell) Psychiatric Psych Exam: Appropriate Responses (Jeannette Terrell) Assessment/Plan Discussed Condition With: Patient Assessment Summary: Hypertension, End Stage Renal Disease Problem List: (1) End stage renal disease on dialysis ICD Codes: N18.6 - End stage renal disease on dialysis; Z99.2 - Dependence on renal dialysis Status: Acute Plan: We will continue dialysis MWF. She is due today. Periodically monitor chemistry panel and phosphorus. Start Renvela. Fluid restriction ordered. Low salt, low phosphorus and low potassium diet. Existing outpatient arrangement at [facility]. (2) Anemia ICD Codes: D64.9 - Anemia Status: Acute Plan: Epogen not required. (3) Gluteal abscess ICD Codes: L02.31 - Cutaneous abscess of buttock Plan: s/p I & D. Placed on Vancomycin and Cefepime. Cultures + E coli. convert to Po for discharge purposes. (4) DM (diabetes mellitus) ICD Codes: E11.9 - Type 2 diabetes mellitus without complications Plan: maintain blood glucose between 140 and 180 (5) HTN (hypertension) ICD Codes: I10 - Essential (primary) hypertension Plan: Stable, monitor. Plan Cleared for discharge from renal perspective. (Jeannette Terrell) Plan patient was seen and examined. Agree with above assessment and plan. (Jovi Major MD) Jeannette Terrell Nov 06, 2017 13:04 Jovi Major MD Nov 07, 2017 09:40
--- NOTE | 2017-11-06 15:44 | HHI.PR ---
Subjective Remarks Follow up for gluteal abscess status post I&D. Patient is currently doing well. She reports significant drainage from her I&D site. No fever or chills. Objective Vitals Vital Signs Date Time Temp Pulse Resp B/P (MAP) Pulse Ox O2 Delivery O2 Flow Rate FiO2 11/06/17 12:00 96.9 75 17 136/68 (90) 97 11/06/17 12:00 97 11/06/17 08:00 97.1 78 16 138/65 (89) 96 11/06/17 04:07 84 11/06/17 04:00 96.7 82 16 126/60 (82) 95 11/06/17 00:31 97.1 75 16 144/65 (91) 97 11/06/17 00:06 73 11/05/17 22:22 71 11/05/17 20:00 97.9 71 16 123/58 (79) 96 11/05/17 16:18 11/05/17 16:00 99.3 83 18 130/60 (83) 98 11/05/17 15:30 84 22 144/70 (94) Room Air I/O 11/05/17 11/05/17 11/05/17 11/06/17 11/06/17 11/06/17 07:00 15:00 23:00 07:00 15:00 23:00 Intake Total 1050 ml 100 ml 100 ml Balance 1050 ml 100 ml 100 ml Intake IV Total 1050 ml 100 ml 100 ml # Voids 0 Result Diagram: 11/06/1721 11/06/17620 Imaging Last Impressions Head CT 11/04/172132 Signed Impressions: Service Date/Time: Saturday, November 04, 2017 22:15 - CONCLUSION: Negative noncontrast head CT. Maycol Anand MD Chest X-Ray 11/04/172132 Signed Impressions: Service Date/Time: Saturday, November 04, 2017 21:52 - CONCLUSION: No evidence of acute cardiopulmonary disease. Maycol Anand MD Objective Remarks GENERAL: Alert, oriented 3, NAD. SKIN: Warm and dry. Left gluteal abscess status post I&D HEAD: Normocephalic. EYES: No scleral icterus. No injection or drainage. NECK: Supple, trachea midline. No JVD or lymphadenopathy. CARDIOVASCULAR: Regular rate and rhythm without murmurs, gallops, or rubs. RESPIRATORY: Breath sounds equal bilaterally. No accessory muscle use. GASTROINTESTINAL: Abdomen soft, non-tender, nondistended. MUSCULOSKELETAL: No cyanosis, or edema. BACK: Nontender without obvious deformity. No CVA tenderness. Procedures Left gluteal abscess I&D in the emergency department. A/P Problem List: (1) Sepsis ICD Code: A41.9 - Sepsis, unspecified organism (2) Gluteal abscess ICD Code: L02.31 - Cutaneous abscess of buttock (3) Elevated troponin ICD Code: R74.8 - Abnormal levels of other serum enzymes (4) HTN (hypertension) ICD Code: I10 - Essential (primary) hypertension (5) Dizziness ICD Code: R42 - Dizziness and giddiness Status: Acute (6) ESRD (end stage renal disease) on dialysis ICD Code: N18.6 - End stage renal disease; Z99.2 - Dependence on renal dialysis (7) DM (diabetes mellitus) ICD Code: E11.9 - Type 2 diabetes mellitus without complications Assessment and Plan 62-year-old female with a PMH of HTN, DM, h/o DVT s/p IVC Filter, Gout and ESRD on HD M// who presented to the ER w/ complaints of generalized weakness, dizziness, and "lump" on LEFT buttock x2 wks. S/p I&D of gluteal abscess in ER. - Sepsis (leukocytosis, tachycardia, source - left gluteal abscess) - Left gluteal abscess - Currently on cefepime and vancomycin. Culture results shows growth of Escherichia coli pansensitive. - Will discontinue cefepime and vancomycin and start patient on ciprofloxacin 250 mg every 12 hours for 7 days. - If patient remains afebrile and continue to do well, we'll consider discharging patient home tomorrow 11/07/2079. - ESRD - nephrology following. Patient is on hemodialysis Monday. - History of DVT status post IVC filter. - Hypertension - currently normotensive. Continue metoprolol 50 mg by mouth daily. - Diabetes mellitus - Currently on insulin NPH 70/30 60 units daily, sliding scale insulin. Will switch 70/30 to Levemir 10 units QHS. Full code. Heparin SQ. Messi Wiggins DO Nov 06, 2017 3:44 pm
[2017-11-06] MEDS: CINACALCET HYDROCHLORIDE 30 MG TAB PO SCH (20:03)
[2017-11-06] MEDS: ATORVASTATIN 20 MG TAB PO SCH (20:04)
[2017-11-06] MEDS: CIPROFLOXACIN 250 MG TAB PO SCH (20:10)
[2017-11-06] MEDS ORDERED: INSULIN DETEMIR 100 UNITS/ML VIAL SQ SCH (21:00)
[2017-11-07] VITALS: BP 124/60; PULSE 73; PULSE 74; RESP 18; TEMP 96.5; O2SAT 96
[2017-11-07 03:55] VITALS: PULSE 78
[2017-11-07 04:00] VITALS: BP 122/55; PULSE 89; RESP 18; TEMP 97.3; O2SAT 95
[2017-11-07] MEDS ORDERED: CIPR250T52 PO (07:52)
[2017-11-07] MEDS ORDERED: METO25TA3 PO (07:52)
[2017-11-07] MEDS ORDERED: LEVEMIR SQ (07:52)
[2017-11-07] MEDS ORDERED: NOVOLOGP2 SQ (07:52)
--- NOTE | 2017-11-07 07:54 | HHI.FF ---
Face to Face Verification Diagnosis: (1) Gluteal abscess (2) ESRD (end stage renal disease) on dialysis (3) Hypertension Home Health Nursing Order: Medical education Signs/symptoms of disease process Diabetic education Wound care and dressing changes Nursing assessment with vital signs Instructions: Wound care recommendations: 1) Cleanse bilateral Gluteal area with soap and water ,rinse,pat dry. 2) Pack Iodoform 1/4inch into Right gluteal surgical incision using only 1 piece. 3) Cover with Calcium alginate cut to fit wound base secure with dry dressing 4) Change daily or as needed for exudate or dislodgement. I have seen patient Basia Lundberg on 11/07/17. My clinical findings support the need for the requested home health care services because: Ltd mobility - disease progression Deconditioned w/ increased weakness Limited ability to care for self Need for psychosocial assistance High risk of falls Infection w/ risk of complications I certify that my clinical findings support that this patient is homebound because: Unsteady gait/balance Unsafe to leave home unassisted Hxn-bupplxvnxm-bbuhynlo bed/chair Unable to use public transportation Messi Wiggins DO Nov 07, 2017 7:54 am
[2017-11-07 08:00] VITALS: BP 132/63; PULSE 79; RESP 17; TEMP 98.8; O2SAT 93
[2017-11-07] MEDS: ASPIRIN EC 81 MG TABEC PO SCH (08:25)
[2017-11-07] MEDS: DOCUSATE SODIUM 50 MG/SENNA 8.6 MG TAB PO SCH (08:25)
[2017-11-07] MEDS: METOPROLOL TARTRATE 25 MG TAB PO SCH (08:25)
[2017-11-07] MEDS: CIPROFLOXACIN 250 MG TAB PO SCH (08:25)
[2017-11-07] MEDS: VITAMIN B CMPLX/VITC/FOLIC AC CAP PO SCH (08:25)
[2017-11-07] MEDS: PANTOPRAZOLE SOD 40 MG DELAYED RELEASE TAB PO SCH (08:25)
[2017-11-07] MEDS: ALLOPURINOL 100 MG TAB PO SCH (08:25)
[2017-11-07] MEDS: HEPARIN SODIUM - SQ 10,000 UNITS/ML VIAL SQ SCH (08:26)
[2017-11-07] MEDS: INSULIN ASPART SUPPLEMENTAL SCALE SQ SCH (08:27)
[2017-11-07] MEDS: SODIUM CHLORIDE 0.9% FLUSH 10 ML FLUSH IV FLUSH SCH (08:28)
[2017-11-07] MEDS ORDERED: guaiFENesin/DEXTROMETHORPHAN 200 MG/20 MG/10 ML CUP PO ONE (10:30)
--- NOTE | 2017-11-07 12:01 | HHI.NPPN ---
Subjective Renal Failure: Chronic, End Stage Renal Disease Interval History Dialyzed yesterday without incident. To be discharged today. (Jeannette Terrell) Review of Systems Respiratory Lungs: Cough (Jeannette Terrell) Skin Skin Remarks sacral abscess (Jeannette Terrell) Objective Data Data Vital Signs Date Time Temp Pulse Resp B/P (MAP) Pulse Ox O2 Delivery O2 Flow Rate FiO2 11/07/17 08:00 98.8 79 17 132/63 (86) 93 11/07/17 04:00 97.3 89 18 122/55 (77) 95 11/07/17 03:55 78 11/07/17 00:00 96.5 73 18 124/60 (81) 96 11/07/17 00:00 74 11/06/17 20:00 96.2 77 18 130/58 (82) 96 11/06/17 19:44 76 11/06/17 12:00 96.9 75 17 136/68 (90) 97 11/06/17 12:00 97 (Jeannette Terrell) -: 11/06/17 0621 11/06/17 0621 Physical Exam General Appearance: Well Developed, Comfortable (Jeannette Terrell) Eyes Eye Exam: Pupils Equal (Jeannette Terrell) Neck Neck Exam: Neck Supple (Jeannette Terrell) Pulmonary Resp Exam: Clear Bilaterally, Breath Sounds Equal (Jeannette Terrell) Cardiology CV Exam: Good Perfusion (Jeannette Terrell) Gastrointestinal/Abdomen GI Exam: Soft, Non-Tender (Jeannette Terrell) Musculoskeletal MS Exam: Normal Tone, Good Strength (Jeannette Terrell) Integumentary Skin Exam: Warm, Dry (Jeannette Terrell) Extremeties Extremities Exam: No Edema, Pedal Pulses Palpable Extremeties Remarks RUE AVF patent (Jeannette Terrell) Neurologic Neuro Exam: Alert, Awake, Oriented, Speech Clear, Moving All Extremities (Jeannette Terrell) Psychiatric Psych Exam: Appropriate Responses (Jeannette Terrell) Assessment/Plan Discussed Condition With: Patient Assessment Summary: Hypertension, End Stage Renal Disease Problem List: (1) End stage renal disease on dialysis ICD Codes: N18.6 - End stage renal disease on dialysis; Z99.2 - Dependence on renal dialysis Status: Acute Plan: 3L UF yesterday Has outpatient HD arrangements in place for tomorrow and MWF. Stable for discharge from renal perspective. Continue Renvela. Low salt, low phosphorus and low potassium diet. (2) Anemia ICD Codes: D64.9 - Anemia Status: Acute Plan: Epogen not required. (3) Gluteal abscess ICD Codes: L02.31 - Cutaneous abscess of buttock Plan: s/p I & D. Cultures + E coli. PO Cipro ordered for discharge purposes. (4) DM (diabetes mellitus) ICD Codes: E11.9 - Type 2 diabetes mellitus without complications Plan: maintain blood glucose between 140 and 180 (5) HTN (hypertension) ICD Codes: I10 - Essential (primary) hypertension Plan: Stable, monitor. Plan We will give one dose of Robitussin DM for cough. Cough not observed. States she has had it for years. (Jeannette Terrell) Plan patient was seen and examined. To be discharged today. Agree with above assessment and plan. (Jovi Major MD) Jeannette Terrell Nov 07, 2017 12:01 Jovi Major MD Nov 07, 2017 20:03
--- NOTE | 2017-11-07 22:30 | HHI.DS ---
Discharge Summary Admission Date Nov 04, 2017 at 23:18 Discharge Date: Nov 07, 2017 Admitting Diagnosis (1) Sepsis ICD Code: A41.9 - Sepsis, unspecified organism Diagnosis: Principal (2) Gluteal abscess ICD Code: L02.31 - Cutaneous abscess of buttock Diagnosis: Principal (3) Elevated troponin ICD Code: R74.8 - Abnormal levels of other serum enzymes (4) HTN (hypertension) ICD Code: I10 - Essential (primary) hypertension (5) Dizziness ICD Code: R42 - Dizziness and giddiness Status: Acute (6) ESRD (end stage renal disease) on dialysis ICD Code: N18.6 - End stage renal disease; Z99.2 - Dependence on renal dialysis (7) DM (diabetes mellitus) ICD Code: E11.9 - Type 2 diabetes mellitus without complications Procedures Left gluteal abscess I&D in the emergency department. Brief History - From Admission This is a 62-year-old female with a PMH of HTN, DM, h/o DVT s/p IVC Filter, Gout and ESRD on HD M/W/ who presented to the ER w/ complaints of generalized weakness, dizziness, and "lump" on buttock x2 wks. States dizziness worse w/ ambulation, feels "off balance". No fall or injury reported. No nausea, vomiting or headache, but reports decreased PO intake. States lump on buttock producing severe pain, constant, sharp, 10/10, non-radiating, worse w/ palpation. No fever or chills. On arrival, BP 195/94, HR 106, O2 sat 97% on RA , Temp 100.5. WBC 13.5. Creatinine 9.0, previously 3.57 on 08/12/15. Lactic Acid normal. Troponin 0.06. CXR with no acute findings. CT Head negative. S/ p I&D of gluteal abscess in ER. Blood Cultures, Vanc/Zosyn IV given. Follows w / Dr. Verma for Nephrology. CBC/BMP: 11/06/17 0621 11/06/17 0621 Significant Findings Laboratory Tests Test 11/05/17 07:10 11/05/17 19:51 11/06/17 06:21 White Blood Count 15.3 TH/MM3 (4.0-11.0) Red Blood Count 3.77 MIL/MM3 (4.00-5.30) Hemoglobin 10.7 GM/DL (11.6-15.3) Hematocrit 33.8 % (35.0-46.0) Mean Corpuscular Hemoglobin Concent 31.5 % (32.0-36.0) Neutrophils (%) (Auto) 85.0 % (16.0-70.0) 77.5 % (16.0-70.0) Lymphocytes (%) (Auto) 3.7 % (9.0-44.0) 8.7 % (9.0-44.0) Monocytes (%) (Auto) 10.4 % (0.0-8.0) 10.6 % (0.0-8.0) Neutrophils # (Auto) 13.0 TH/MM3 (1.8-7.7) 8.4 TH/MM3 (1.8-7.7) Lymphocytes # (Auto) 0.6 TH/MM3 (1.0-4.8) 0.9 TH/MM3 (1.0-4.8) Monocytes # (Auto) 1.6 TH/MM3 (0-0.9) 1.1 TH/MM3 (0-0.9) Blood Urea Nitrogen 36 MG/DL (7-18) 46 MG/DL (7-18) Creatinine 9.34 MG/DL (0.50-1.00) 11.35 MG/DL (0.50-1.00) Random Glucose 267 MG/DL (74-106) 188 MG/DL (74-106) Albumin 2.5 GM/DL (3.4-5.0) Calcium Level 7.8 MG/DL (8.5-10.1) 8.3 MG/DL (8.5-10.1) Alkaline Phosphatase 122 U/L (45-117) Sodium Level 133 MEQ/L (136-145) 134 MEQ/L (136-145) Estimat Glomerular Filtration Rate 5 ML/MIN (>89) 4 ML/MIN (>89) Troponin I 0.09 NG/ML (0.02-0.05) Chloride Level 97 MEQ/L (98-107) Phosphorus Level 5.4 MG/DL (2.5-4.9) Imaging Last Impressions Head CT 11/04/172132 Signed Impressions: Service Date/Time: Saturday, November 04, 2017 22:15 - CONCLUSION: Negative noncontrast head CT. Maycol Anand MD Chest X-Ray 11/04/172132 Signed Impressions: Service Date/Time: Saturday, November 04, 2017 21:52 - CONCLUSION: No evidence of acute cardiopulmonary disease. Maycol Anand MD PE at Discharge GENERAL: Alert, oriented 3, NAD. SKIN: Warm and dry. Left gluteal abscess status post I&D HEAD: Normocephalic. EYES: No scleral icterus. No injection or drainage. NECK: Supple, trachea midline. No JVD or lymphadenopathy. CARDIOVASCULAR: Regular rate and rhythm without murmurs, gallops, or rubs. RESPIRATORY: Breath sounds equal bilaterally. No accessory muscle use. GASTROINTESTINAL: Abdomen soft, non-tender, nondistended. MUSCULOSKELETAL: No cyanosis, or edema. BACK: Nontender without obvious deformity. No CVA tenderness. Pt update on day of discharge Patient is doing well. No fever, chills. Hospital Course 62-year-old female with a PMH of HTN, DM, h/o DVT s/p IVC Filter, Gout and ESRD on HD // who presented to the ER w/ complaints of generalized weakness, dizziness, and "lump" on LEFT buttock x2 wks. S/p I&D of gluteal abscess in ER. - Sepsis (leukocytosis, tachycardia, source - left gluteal abscess) - Left gluteal abscess - Received on cefepime and vancomycin. Culture results shows growth of Escherichia coli pansensitive. - Based on culture results, discontinued cefepime and vancomycin and started patient on ciprofloxacin 250 mg every 12 hours for 7 days. - Patient remained afebrile and was discharged on cipro. - ESRD - nephrology following. Patient is on hemodialysis Monday. - History of DVT status post IVC filter. - Hypertension - currently normotensive. Continue metoprolol 50 mg by mouth daily. - Diabetes mellitus - Currently on insulin NPH 70/30 60 units daily, sliding scale insulin. Will switch 70/30 to Levemir 10 units QHS. Pt Condition on Discharge: Good Discharge Disposition: Disch w/ Home Health Serv Discharge Time: > 30 minutes Discharge Instructions DIET: Follow Instructions for: Heart Healthy Diet, Diabetic Diet, Renal Failure Diet Activities you can perform: Regular-No Restrictions Follow up Referrals: PCP Follow-up - 1 Week New Medications: Insulin Aspart Inj (Novolog Inj) 1,000 Unit/10 Ml Vial 1-9 UNITS SQ ACHS for Blood Sugar Management, #10 ML 0 Refills Max dose at bedtime:( )units; sugars less than 70,(0)units; sugars 150-199,(1) unit; sugars 200-249,(3) units; sugars 250-299,(5) units; sugars 300-349,(7) units; sugars greater than 349,(9) units Ciprofloxacin (Cipro) 250 Mg Tab 250 MG PO Q12HR for Infection, #14 TAB Insulin Detemir Inj (Levemir Inj) 1,000 unit/ 10 ML Vial 12 UNITS SQ HS for Blood Sugar Management for 30 Days, INJECTION 3 Refills Do not mix with any other Insulin. Metoprolol Tartrate (Metoprolol Tartrate) 25 Mg Tab 50 MG PO DAILY for Heart, #90 TAB Continued Medications: Allopurinol (Allopurinol) 100 Mg Tab 100 MG PO DAILY for Gout, #30 TAB 0 Refills Atorvastatin (Atorvastatin) 20 Mg Tab 20 MG PO HS for Cholesterol Management, #30 TAB 0 Refills B-Complex W/ C & Folic Acid (Renal Vitamin) 1 Cap 1 CAP PO DAILY for Nutritional Supplement, #30 CAP 0 Refills If on dialysis, take after treatment. Calcium Acetate (Phosphate Bin (Calcium Acetate) 667 Mg Cap 2001 MG PO DAILY Pantoprazole (Pantoprazole) 40 Mg Tab 40 MG PO DAILY for Reflux, #30 TAB 0 Refills Pregabalin (Lyrica) 75 Mg Cap 75 MG PO DAILY, #30 CAP 0 Refills Discontinued Medications: Cinacalcet (Sensipar) 30 Mg Tab 30 MG PO HS, #30 TAB 0 Refills Insulin Lispro Protamine-Lispro 75-25 Inj (Humalog Mix 75-25 Inj) 1,000 Unit/10 Ml Susp 60 UNITS SQ HS for Blood Sugar Management, VIAL 0 Refills Metoprolol Tartrate (Metoprolol Tartrate) 25 Mg Tab 30 MG PO DAILY, #30 TAB 0 Refills Messi Wiggins DO Nov 07, 2017 22:30
== END 2017-11-07 12:01 | disposition home health service (06) | DRG 871 ==
LOC: NEPE 20:56 → NEDA 23:18 → OBSVTOIN 23:18 → NEDH 11-05 07:08 → N07A 11-05 16:12
PROVIDERS: ADMIT Hospitalist; ATTEND Hospitalist
PROC: 0H98XZZ Drainage of Buttock Skin, External Approach (ICD-10-PCS; principal; 2017-11-04)
PROC: 5A1D70Z Performance of Urinary Filtration, Intermittent, Less than 6 Hours Per Day (ICD-10-PCS; 2017-11-06)
DX: A41.51 Sepsis due to Escherichia coli [E. coli] (principal); N18.6 End stage renal disease; E11.22 Type 2 diabetes mellitus with diabetic chronic kidney disease; I12.0 Hypertensive chronic kidney disease with stage 5 chronic kidney disease or end stage renal disease; L02.31 Cutaneous abscess of buttock; E87.1 Hypo-osmolality and hyponatremia; M00.062 Staphylococcal arthritis, left knee; E11.65 Type 2 diabetes mellitus with hyperglycemia; E78.00 Pure hypercholesterolemia, unspecified; M10.9 Gout, unspecified; R19.7 Diarrhea, unspecified; E86.0 Dehydration; R74.8 Abnormal levels of other serum enzymes; D63.1 Anemia in chronic kidney disease; R05 Cough; B95.61 Methicillin susceptible Staphylococcus aureus infection as the cause of diseases classified elsewhere; F14.10 Cocaine abuse, uncomplicated; F10.10 Alcohol abuse, uncomplicated; F11.10 Opioid abuse, uncomplicated; F17.200 Nicotine dependence, unspecified, uncomplicated; Z79.4 Long term (current) use of insulin; Z86.718 Personal history of other venous thrombosis and embolism; Z88.2 Allergy status to sulfonamides; Z91.19 Patient's noncompliance with other medical treatment and regimen; Z99.2 Dependence on renal dialysis
CPT/HCPCS: 10061; 70450; 71045; 80048; 80053; 82550; 82948; 83605; 83735; 84100; 84484; 85025; 87040; 87070; 87077; 87186; 87205; 87804; 90935; 93005; 96360; 96374; 96375; J0692; J1644; J1815; J2543; J3370; J7030; J7040; Q4081

== ENCOUNTER 2018-02-13 09:46 | Day surgery (SDC) | payer MEDICARE, OTHER ==
[~2018-02-13 09:46] MED LIST changes: -1-ME1LIQ PO; +ATOR20TA15 PO; -ATOR20TA42 PO; +CIPR250T52 PO; -FOLITAB6 PO; -INSU100V SQ; +LEVEMIR SQ; -LOSA100T PO; +METO25TA3 PO; -METO50TA PO; +NOVOLOGP2 SQ; -PANT40IN3 PO; +PANT40TA3 PO; +RENACAP2 PO; -RENATAB PO
[2018-02-13 10:15] VITALS: BP 175/99; PULSE 100; RESP 18; TEMP 99.7; O2SAT 94
[2018-02-13 10:50] VITALS: BP 163/92; PULSE 93; RESP 18; TEMP 98.3; O2SAT 96
--- NOTE | 2018-02-13 10:56 | RADRPT ---
EXAM DATE/TIME: 02/13/2018 10:26 [facility] COMPARISON: No previous studies available for comparison. EXTERNAL COMPARISON: [facility], XR CHEST PA & LAT W/DEBUITIS, BILATERAL, Jan 18 2018, CT CHEST W/O CONTRAST, 2017. INDICATIONS : Right pleural effusion. MEDICAL HISTORY : Hypercholesterolemia. Hypertension. ESRD. Diabetes. DVT. Gout. Pleural effusion. Anticoagulant thera py, Heparin. SURGICAL HISTORY : Tubal ligation. Bilateral cataract surgery. Dialysis. [place] filter. Blood transfusions. ENCOUNTER: Initial ACUITY: 3 weeks PAIN SCORE: 0/10 LOCATION: Right chest FLUID: Total volume of 600 cc of clear, yellow fluid was removed. Fluid was sent to lab for ordered studies. TECHNIQUE: 1. Ultrasound guidance for thoracentesis. 2. Thoracentesis. The risks, benefits, and alternatives to ultrasound guided thoracentesis were explained to the patien t in lay simple terms, including the risk of bleeding and infection. Written and verbal informed con sent was obtained. Appropriate area for thoracentesis was marked under ultrasound guidance with the patient in the uprig ht position. Overlying skin was prepped and draped in the usual sterile fashion and with local anest hetic, a dermatotomy was made with an 11 blade scalpel. A 6 Macedonian thoracentesis catheter was placed in the pleural space and fluid was removed. Catheter was then removed and a sterile dressing applie d. There were no immediate complications. The patient tolerated the procedure well and the left the ultrasound suite in stable condition. Chest radiograph is to be obtained. CONCLUSION: Uncomplicated ultrasound guided thoracentesis. Bennie Ibrahim MD on February 13, 2018 at 10:54 Board Certified Radiologist. This report was verified electronically.
--- NOTE | 2018-02-13 10:58 | RADRPT ---
EXAM DATE/TIME: 02/13/2018 10:44 [facility] COMPARISON: CHEST SINGLE AP, November 04, 2017, 21:52. INDICATIONS : Post thoracentesis right side, short of breath MEDICAL HISTORY : Renal disease, end stage. Hypertension Diabetes mellitus type II. Dialysis, SURGICAL HISTORY : Zoya Filter, MAURISIO Fistula ENCOUNTER: Subsequent ACUITY: 1 day PAIN SCORE: 0/10 LOCATION: Right chest FINDINGS: A single frontal expiratory view of the chest was performed. Mild airspace disease at the right lung base. No evidence of pneumothorax. Mediastinal structures are in the midline. Redemonstration of rig ht brachiocephalic/subclavian stent. The cardio-mediastinal contours and bronchopulmonary markings are unremarkable for an expiratory exam . Osseous structures are intact. CONCLUSION: 1. No significant residual pleural effusion or pneumothorax following right-sided thoracentesis. 2. Minimal airspace disease at the right lung base, presumably compressive atelectasis. Bennie Ibrahim MD on February 13, 2018 at 10:54 Board Certified Radiologist. This report was verified electronically.
[2018-02-13 11:05] VITALS: BP 159/87; PULSE 96; RESP 18; O2SAT 95
[2018-02-13 11:35] LABS: TOTAL PROTEIN,PLEURAL FLUID 1.8 GM/DL
[2018-02-13 14:12] LABS: PLEURAL FLUID BASO 1 %; PLEURAL FLUID LYMPHS 64 %; PLEURAL FLUID POLYS (SEGS) 35 %; PLEURAL FLUID RBC 489 /MM3 (0-0); PLEURAL FLUID WBC 57 /MM3 (0-10)
[2018-02-14] MEDS ORDERED: LIDOCAINE HCL 1% PF 30 ML VIAL ONE (10:31)
== END 2018-02-13 11:18 | disposition home or self-care (01) ==
LOC: HRAD 09:46 → HRIP 09:49 → HRAD 11:18
PROVIDERS: ATTEND Internal Medicine
DX: J90 Pleural effusion, not elsewhere classified (principal); I12.0 Hypertensive chronic kidney disease with stage 5 chronic kidney disease or end stage renal disease; N18.6 End stage renal disease; E11.22 Type 2 diabetes mellitus with diabetic chronic kidney disease; E78.00 Pure hypercholesterolemia, unspecified; M10.9 Gout, unspecified; Z99.2 Dependence on renal dialysis
CPT/HCPCS: 32555; 71045; 82945; 83615; 84157; 87015; 87070; 87116; 87205; 87206; 88112; 89051

== ENCOUNTER 2018-07-15 01:02 | Inpatient (IN) ==
[2018-07-15] MEDS ORDERED: Dextrose 50% in Water Syringe 50 ML ONE (01:08)
[2018-07-15] MEDS ORDERED: Dextrose 25% in Water Inj 10 ML Syringe IV.PUSH ONE (01:09)
--- NOTE | 2018-07-15 01:09 | ED ---
HPI General Chief Complaint: Medical Clearance Stated Complaint: medical Time Seen by Provider: 07/15/18 01:06 Source: patient and EMS Mode of arrival: EMS Limitations: other History of Present Illness HPI narrative: Apparently the original call to 9 was due to poor responsiveness to family, so 9 was called, upon arrival of the found the patient's Accu-Chek to be in the 20s, the patient was given D50 and the patient regained consciousness and was able to speak with them and give a history that she had given herself insulin and did not eat a meal for dinner. MD complaint: decreased responsiveness Timing confirmed by: family member Severity: moderate Consistency of symptoms: waxing and waning Context: diabetes Associated symptoms: denies other symptoms Treatments prior to arrival: glucose and IV fluid Related Data Allergies Allergy/AdvReac Type Severity Reaction Status Date / Time Sulfa (Sulfonamide Allergy Severe SWELLING, Verified 07/15/18 01:30 Antibiotics) HIVES ADHESIVE TAPE Allergy Intermediate REMOVES Uncoded 07/15/18 01:20 SKIN Review of Systems ROS: all other systems reviewed are negative PMFSH History History Provided By: Patient Medical History Medical History Diabetes (Acute) Hypothyroidism (Acute) Presence of arterial-venous shunt (for dialysis) (Acute) Renal disease (Acute) Social History Social History Substance History: No History of Abuse Smoking Status: Former smoker How Often Do You Have a Drink Containing Alcohol: Never Recent Travel in [facility] within the Last 8 Weeks: No Recent Out of Country Travel within the Last 8 Weeks: No Exam Narrative Exam Narrative: GENERAL: Well-nourished, well-developed patient in no apparent distress. SKIN: Warm and dry. HEAD: Atraumatic. Normocephalic. EYES: Pupils equal and round. No scleral icterus. No injection or drainage. ENT: No nasal bleeding or discharge. Mucous membranes pink and moist. NECK: Trachea midline. No JVD. CARDIOVASCULAR: Regular rate and rhythm. no rubs or gallops RESPIRATORY: No accessory muscle use. Clear to auscultation. Breath sounds equal bilaterally. GASTROINTESTINAL: Abdomen soft, non-tender, nondistended. No rebound or guarding MUSCULOSKELETAL: Extremities without clubbing, cyanosis, or edema. No obvious deformities. NEUROLOGICAL: Awake and alert. No obvious cranial nerve deficits. Motor grossly within normal limits. Five out of 5 muscle strength in the arms and legs. Normal speech. PSYCHIATRIC: Appropriate mood and affect; insight and judgment normal. Course Initial Documented Vital Signs Temperature 94.3 F L 07/15/18 01:10 Last Documented Vital Signs Temperature 97.8 F 07/15/18 03:17 Pulse Rate 84 07/15/18 03:17 Respiratory Rate 16 07/15/18 03:17 Blood Pressure 192/85 H 07/15/18 03:17 Pulse Oximetry 97 07/15/18 03:17 Critical Care Time Critical Care Time: Yes Total Critical Care Time: 60 Attestation: Aggregate critical care time was 60 minutes. Time to perform other separately billable procedures was not included in the critical care time. My time did not include minutes spent treating any other patients simultaneously or on activities that did not directly contribute to the patient's treatment. The services I provided to this patient were to treat and/or prevent clinically significant deterioration that could result in: Symptomatic hypoglycemia which may have resulted in hypothermia, hypotension as well as other dysfunctions which may need to or permanent brain injury I provided critical care services requiring my management, as noted below: Chart data review, documentation time, medication orders and management, vital sign assessments/reviewing monitor data, ordering and reviewing lab tests, ordering and interpreting/reviewing x-rays and diagnostic studies, care of the patient and discussion of the patient with the admitting physicians. Medical Decision Making MDM Narrative Medical decision making narrative: Patient was found to be hypoglycemic on the field, given dextrose by EMS glucose improved from the 20s up to 113 upon arrival to the emergency department we repeated an Accu-Chek which was 71, and a rectal temperature on this patient that was 94/hypothermic. Therefore this patient was approached as a sepsis workup, per source patient was given Rocephin 1, because apparently the patient has had a cough 1 week. Patient herself denies any nausea vomiting or diarrhea. Patient states that she is a dialysis patient 3 times a week Monday. Repeat BGL shows the patient's glucose to be down to 80 again will repeat a second half of D50 CBC does not show any evidence of leukocytosis anemia or any abnormal platelet count The patient does show neutrophilia of 79% or rounded up to 80%. Lactic acid 1.3 ua c/w uti Chest x-ray shows a left lower lobe infiltrate Last repeat glucose 93, last repeat temp rectally of 97 degrees...patient is a/ o x 4 and resting without any distress. Medical Screen Exam Complete: Yes Emergency Medical Condition: Yes Differential Diagnosis Differential Diagnosis: Sepsis versus pneumonia versus UTI versus electrolyte abnormality versus STEMI versus Medical Records Medical records reviewed: Yes I reviewed the patient's medical records. Lab Data Result diagrams: 07/15/18 01:15 07/15/18 02:10 Lab Results 07/15/18 07/15/18 07/15/18 Range/Units 01:15 01:15 01:45 WBC 7.2 (4.0-11.0) th/mm3 RBC 4.22 (4.00-5.30) mil/mm3 Hgb 12.2 (11.6-15.3) gm/dL Hct 38.0 (35.0-46.0) % MCV 90.1 (80.0-100.0) fL MCH 29.0 (27.0-34.0) pg MCHC 32.2 (32.0-36.0) % RDW 14.6 (11.6-17.2) % Plt Count 180 (150-450) th/mm3 MPV 9.9 (7.0-11.0) fL Neut % (Auto) 79.5 H (16.0-70.0) % Lymph % (Auto) 9.9 (9.0-44.0) % [place] % (Auto) 7.4 (0.0-8.0) % Eos % (Auto) 1.1 (0.0-4.0) % Baso % (Auto) 2.1 H (0.0-2.0) % Neut # (Auto) 5.7 (1.8-7.7) th/mm3 Lymph # (Auto) 0.7 L (1.0-4.8) th/mm3 [place] # (Auto) 0.5 (0.0-0.9) th/mm3 Eos # (Auto) 0.1 (0.0-0.4) th/mm3 Baso # (Auto) 0.2 (0.0-0.2) th/mm3 WBC Differential . Differential Comment Auto diff final Sodium (136-145) meq/L Potassium (3.5-5.1) meq/L Chloride (98-107) meq/L Carbon Dioxide (21.0-32.0) meq/L Anion Gap (5-15) meq/L BUN (7-18) mg/dL Creatinine (0.50-1.00) mg/dL Estimated GFR (>89) mL/min POC Glucose (68-110) mg/dl Random Glucose (74-106) mg/dL Lactic Acid 1.3 (0.4-2.0) mmol/L Calcium (8.5-10.1) mg/dL Total Bilirubin (0.2-1.0) mg/dL AST (15-37) U/L ALT (10-53) U/L Alkaline Phosphatase (45-117) U/L Troponin I (0.02-0.05) ng/mL Total Protein (6.4-8.2) g/dL Albumin (3.4-5.0) g/dL Urine Color Yellow (Yellw/Straw) Urine Clarity Turbid H (Clear) Urine pH 6.0 (5.0-8.5) Ur Specific [place] 1.009 (1.002-1.035) Urine Protein 100 H (Neg-Trace) mg/dL Urine Glucose (UA) Negative (Negative) mg/dL Urine Ketones Negative (Negative) mg/dL Urine Occult Blood Small H (Negative) Urine Nitrate Negative (Negative) Urine Bilirubin Negative (Negative) Urine Urobilinogen Less than 2 (Less than 2) mg/dL Ur Leukocyte Esterase Large H (Negative) Urine RBC 13 H (0-3) /hpf Urine WBC (0-5) /hpf Urine WBC Clumps Many H (None) Ur Squamous Epith Cells 1 (0-5) /hpf Urine Bacteria Many H (None) /hpf Micro UA Comment Culture indicated Ur Microscopic Review Not Reportable Urine Culture Comments Culture indicated 07/15/18 07/15/18 07/15/18 Range/Units 02:06 02:10 03:15 WBC (4.0-11.0) th/mm3 RBC (4.00-5.30) mil/mm3 Hgb (11.6-15.3) gm/dL Hct (35.0-46.0) % MCV (80.0-100.0) fL MCH (27.0-34.0) pg MCHC (32.0-36.0) % RDW (11.6-17.2) % Plt Count (150-450) th/mm3 MPV (7.0-11.0) fL Neut % (Auto) (16.0-70.0) % Lymph % (Auto) (9.0-44.0) % [place] % (Auto) (0.0-8.0) % Eos % (Auto) (0.0-4.0) % Baso % (Auto) (0.0-2.0) % Neut # (Auto) (1.8-7.7) th/mm3 Lymph # (Auto) (1.0-4.8) th/mm3 [place] # (Auto) (0.0-0.9) th/mm3 Eos # (Auto) (0.0-0.4) th/mm3 Baso # (Auto) (0.0-0.2) th/mm3 WBC Differential Differential Comment Sodium 140 (136-145) meq/L Potassium 4.3 (3.5-5.1) meq/L Chloride 102 (98-107) meq/L Carbon Dioxide 25.4 (21.0-32.0) meq/L Anion Gap 13 (5-15) meq/L BUN 52 H (7-18) mg/dL Creatinine 9.51 H (0.50-1.00) mg/dL Estimated GFR 5 L (>89) mL/min POC Glucose 80 93 (68-110) mg/dl Random Glucose 85 (74-106) mg/dL Lactic Acid (0.4-2.0) mmol/L Calcium 7.5 L (8.5-10.1) mg/dL Total Bilirubin 0.4 (0.2-1.0) mg/dL AST 14 L (15-37) U/L ALT 20 (10-53) U/L Alkaline Phosphatase 148 H (45-117) U/L Troponin I 0.03 (0.02-0.05) ng/mL Total Protein 8.2 (6.4-8.2) g/dL Albumin 3.2 L (3.4-5.0) g/dL Urine Color (Yellw/Straw) Urine Clarity (Clear) Urine pH (5.0-8.5) Ur Specific [place] (1.002-1.035) Urine Protein (Neg-Trace) mg/dL Urine Glucose (UA) (Negative) mg/dL Urine Ketones (Negative) mg/dL Urine Occult Blood (Negative) Urine Nitrate (Negative) Urine Bilirubin (Negative) Urine Urobilinogen (Less than 2) mg/dL Ur Leukocyte Esterase (Negative) Urine RBC (0-3) /hpf Urine WBC (0-5) /hpf Urine WBC Clumps (None) Ur Squamous Epith Cells (0-5) /hpf Urine Bacteria (None) /hpf Micro UA Comment Ur Microscopic Review Urine Culture Comments Imaging Data Radiologist's impression: Chest X-Ray 07/15/18 01:09 CONCLUSION: Atelectasis versus early/mild pneumonia of the left base. Head CT 07/15/18 01:09 CONCLUSION: 1. No acute intracranial abnormality. 2. Chronic white matter changes. . Discharge Plan Discharge Disposition Patient Disposition: 30 Still Patient Discharge Condition Condition: Fair Discharge Details Diagnosis: Hypoglycemia associated with diabetes, Pneumonia involving left lung, Acute UTI Physicians Team ED Provider: Feliberto Tobar Primary Care Provider: UNKNOWN, Attending Provider: Campbell Tabares Status ED Status: Admitted Patient
[2018-07-15 01:31] LABS: Baso # (Auto) 0.2 th/mm3 (0.0-0.2); Baso % (Auto) 2.1 % (0.0-2.0); Eos # (Auto) 0.1 th/mm3 (0.0-0.4); Eos % (Auto) 1.1 % (0.0-4.0); Hemoglobin 12.2 gm/dL (11.6-15.3); Lymph # (Auto) 0.7 th/mm3 (1.0-4.8); Lymph % (Auto) 9.9 % (9.0-44.0); Mean Corpuscular HGB Conc 32.2 % (32.0-36.0); Mean Corpuscular Volume 90.1 fL (80.0-100.0); Mean Platelet Volume 9.9 fL (7.0-11.0); Mono # (Auto) 0.5 th/mm3 (0.0-0.9); Mono % (Auto) 7.4 % (0.0-8.0); Neut # (Auto) 5.7 th/mm3 (1.8-7.7); Neut % (Auto) 79.5 % (16.0-70.0); Platelet Count 180 th/mm3 (150-450); Red Blood Count 4.22 mil/mm3 (4.00-5.30); Red Cell Distribution Width 14.6 % (11.6-17.2); White Blood Count 7.2 th/mm3 (4.0-11.0)
--- NOTE | 2018-07-15 01:36 | XR ---
EXAM DATE: 07/15/2018 1:32 AM EDT AGE/SEX: 62 years / Female INDICATIONS: Fever. CLINICAL DATA: This is the patient's initial encounter. Patient reports that signs and symptoms have been present for 1 day and indicates a pain score of 0/10. MEDICAL/SURGICAL HISTORY: . Renal disease, end stage. Hypertension Diabetes mellitus type II. D ialysis, Deep Vein Thrombosis . Whiteside Filter, MAURISIO Fistula COMPARISON: [facility] [place], 02/13/2018. . FINDINGS: Mild atelectasis and/or infiltrate seen left lung base. Right lung reasonably clear. No pleural effus ion or pneumothorax seen on either side. Heart size stable, within normal limits. Right subclavian stent again seen. CONCLUSION: Atelectasis versus early/mild pneumonia of the left base. Electronically signed by: Maycol Anand MD 07/15/2018 1:35 AM EDT
--- NOTE | 2018-07-15 01:37 | CT ---
EXAM DATE: 07/15/2018 1:34 AM EDT AGE/SEX: 62 years / Female INDICATIONS: Altered mental status, CLINICAL DATA: This is the patient's initial encounter. Patient reports that signs and symptoms have been present for 1 day and indicates a pain score of 0/10. MEDICAL/SURGICAL HISTORY: Cardiovascular disease. Hypertension. Diabetes mellitus type II. ERSD Dialysis Tubal ligation. AV shunt RADIATION DOSE: 56.35 CTDI (mGy) COMPARISON: [facility] – [place], CT BRAIN W/O CONTRAST, 11/04/2017. . TECHNIQUE: CT of the head without contrast. Using automated exposure control and adjustment of the mA and/or kV according to patient size, radiation dose was kept as low as reasonably achievable to ob tain optimal diagnostic quality images. DICOM format image data is available electronically for revi ew and comparison. FINDINGS: Cerebrum: The ventricles are normal for age. No evidence of midline shift, mass lesion, hemorrhage or acute infarction. No extraaxial fluid collections are seen. Chronic low-attenuation seen in the p eriventricular white matter. Posterior Fossa: The cerebellum and brainstem are intact. The 4th ventricle is midline. The cerebe llopontine angle is unremarkable. Extracranial: The visualized portion of the orbits is intact. Visualized paranasal sinuses and masto id air cells are clear. Skull: The calvaria is intact. No evidence of skull fracture. CONCLUSION: 1. No acute intracranial abnormality. 2. Chronic white matter changes. . Electronically signed by: Maycol Anand MD 07/15/2018 1:36 AM EDT
[2018-07-15] MEDS ORDERED: Azithromycin Inj 500 MG in Sodium Chlor 0.9% Inj 250 ML IV.SIG ONE (02:13)
[2018-07-15 02:16] LABS: Bacteria,Urine Many /hpf; Bilirubin,Urine Negative (Negative); Clarity,Urine Turbid (Clear); Color,Urine Yellow (Yellw/Straw); Glucose,Urine (UA) Negative (Negative); Leukocyte Esterase,Urine Large (Negative); Nitrite,Urine Negative (Negative); Specific Gravity,Urine 1.009 (1.002-1.035); Squamous Epithelial Cell,Urine 1 /hpf (0-5)
[2018-07-15 02:37] LABS: Alanine Aminotransferase 20 U/L (10-53); Albumin 3.2 g/dL (3.4-5.0); Anion Gap 13 meq/L (5-15); Aspartate Aminotransferase 14 U/L (15-37); Blood Urea Nitrogen 52 mg/dL (7-18); Calcium 7.5 mg/dL (8.5-10.1); Carbon Dioxide 25.4 meq/L (21.0-32.0); Chloride 102 meq/L (98-107); Glomerular Filtration Rate 5 mL/min (>89); Glucose,Random 85 mg/dL (74-106); Potassium 4.3 meq/L (3.5-5.1); Sodium 140 meq/L (136-145)
[2018-07-15 02:41] LABS: Alkaline Phosphatase 148 U/L (45-117); Total Protein 8.2 g/dL (6.4-8.2); Troponin I 0.03 ng/mL (0.02-0.05)
--- NOTE | 2018-07-15 03:54 | P.HPCC ---
History of Present Illness Primary Care Physician: UNKNOWN History of Present Illness: 62-year-old female with history of ESRD on HD, diabetes mellitus presents for an evaluation of altered mental status. Per chart review the 911 was called due to poor responsiveness to family. Upon arrival of EMS found the patient's Accu-Chek to be in the 20s, the patient was given D50 and the patient regained consciousness and was able to speak with them and give a history that she had given herself insulin and did not eat a meal for dinner. In the emergency department she was also found to be hypothermic with a temperature of 94. Chest x-ray shows questionable left lower lobe infiltrate suggesting developing pneumonia, also urinalysis shows signs of urinary tract infection. Patient has been admitted to ICU with a diagnosis of sepsis. Inpatient Certification: I certify that the inpatient services were ordered in accordance with Medicare regulations governing the order. This includes certification that hospital inpatient services are reasonable and necessary and in the case of services not specified as inpatient-only under 42 CFR 419.22(n), that they are appropriately provided as inpatient services in accordance to with the 2-midnight benchmark under 43 CFR 412.3(e) Review of Systems All other systems reviewed negative except as stated in HPI PMFSH - History History Provided By: Patient - Medical History Medical History: Medical History (Last Updated 07/15/18 @ 01:18 by Patrica Mao RN) Diabetes Hypothyroidism Presence of arterial-venous shunt (for dialysis) Renal disease - Tobacco History Smoking Status: Former smoker - Alcohol History How Often Do You Have a Drink Containing Alcohol: Never - Substance Use History Substance History: No History of Abuse - Travel History Recent Travel in the [place] Within the Last 8 Weeks: No Recent Travel Out of the Country Within the Last 8 Weeks: No - Immunization History Tetanus Immunization: Unsure Hx Influenza Vaccine This Season: No Medications and Allergies Allergies Allergy/AdvReac Type Severity Reaction Status Date / Time Sulfa (Sulfonamide Allergy Severe SWELLING, Verified 07/15/18 01:30 Antibiotics) HIVES ADHESIVE TAPE Allergy Intermediate REMOVES Uncoded 07/15/18 01:20 SKIN Results - Labs CBC & Chem 7: 07/15/18 01:15 07/15/18 02:10 Labs: Short CBC 07/15/18 Range/Units 01:15 WBC 7.2 (4.0-11.0) th/mm3 Hgb 12.2 (11.6-15.3) gm/dL Hct 38.0 (35.0-46.0) % Plt Count 180 (150-450) th/mm3 BMP 07/15/18 02:10 Sodium 140 Potassium 4.3 Chloride 102 Carbon Dioxide 25.4 BUN 52 H Creatinine 9.51 H Calcium 7.5 L Cardiac Enzymes 07/15/18 Range/Units 02:10 Troponin I 0.03 (0.02-0.05) ng/mL Liver Function 07/15/18 Range/Units 02:10 Total Bilirubin 0.4 (0.2-1.0) mg/dL AST 14 L (15-37) U/L ALT 20 (10-53) U/L Alkaline Phosphatase 148 H (45-117) U/L Albumin 3.2 L (3.4-5.0) g/dL Urine 07/15/18 Range/Units 01:45 Urine Color Yellow (Yellw/Straw) Urine Clarity Turbid H (Clear) Urine pH 6.0 (5.0-8.5) Ur Specific Grady 1.009 (1.002-1.035) Urine Protein 100 H (Neg-Trace) mg/dL Urine Glucose (UA) Negative (Negative) mg/dL - Imaging Impressions Chest X-Ray 07/15/18 01:09 CONCLUSION: Atelectasis versus early/mild pneumonia of the left base. Head CT 07/15/18 01:09 CONCLUSION: 1. No acute intracranial abnormality. 2. Chronic white matter changes. . Exam Vital signs: Vital Signs 07/15/18 01:10 07/15/18 01:13 07/15/18 01:21 Temperature 94.3 F L 94.3 F L Pulse Rate 83 84 Respiratory Rate 20 Blood Pressure 222/98 H Pulse Oximetry 86 L 07/15/18 01:24 07/15/18 03:17 Temperature 97.8 F Pulse Rate 84 Respiratory Rate 16 Blood Pressure 192/85 H Pulse Oximetry 99 97 Intake & Output 07/14/18 07/14/18 07/15/18 06:59 18:59 06:59 Intake Total 125 / 125 Balance 125 / 125 Weight 74.843 kg Intake: IV 125 / 125 D50W Syringe 50 ML @ 0 mls/hr . [address] .[facility] Rx#:[id number] Rocephin Inj 1,000 MG In NS Inj 100 / 100 100 ML @ 200 mls/hr IV.SIG ONCE ONE Rx#:[id number] Caprini VTE Risk Assessment Caprini VTE Risk Assessment: Moderate/High Risk (score >= 2) Caprini Risk Assessment Model: Point Value = 1 Point Value = 2 Point Value = 3 Point Value = 5 Age 41-60 Minor surgery BMI > 25 kg/m2 Swollen legs Varicose veins or History of unexplained or recurrent spontaneous Oral contraceptives or hormone replacement Sepsis (< 1 month) Serious lung disease, including pneumonia (< 1 month) Abnormal pulmonary function Acute myocardial infarction Congestive heart failure (< 1 month) History of inflammatory bowel disease Medical patient at bed rest Age 61-74 Arthroscopic surgery Major open surgery (> 45 min) Laparoscopic surgery (> 45 min) Malignancy Confined to bed (> 72 hours) Immobilizing plaster cast Central venous access Age >= 75 History of VTE Family history of VTE Factor V Leiden Prothrombin [id number] Lupus anticoagulant Anticardiolipin antibodies Elevated serum homocysteine Heparin-induced thrombocytopenia Other congenital or acquired thrombophilia Stroke (< 1 month) Elective arthroplasty Hip, pelvis, or leg fracture Acute spinal cord injury (< 1 month) Prophylaxis Regimen: Total Risk Factor Score Risk Level Prophylaxis Regimen 0-1 Low Early ambulation 2 Moderate Order ONE of the following: *Sequential Compression Device (SCD) *Heparin 5000 units SQ BID 3-4 Higher Order ONE of the following medications: *Heparin 5000 units SQ TID *Enoxaparin/Lovenox 40 mg SQ daily (WT < 150 kg, CrCl > 30 mL/min) *Enoxaparin/Lovenox 30 mg SQ daily (WT < 150 kg, CrCl > 10-29 mL/min) *Enoxaparin/Lovenox 30 mg SQ BID (WT < 150 kg, CrCl > 30 mL/min) AND/OR *Sequential Compression Device (SCD) 5 or more Highest Order ONE of the following medications: *Heparin 5000 units SQ TID (Preferred with Epidurals) *Enoxaparin/Lovenox 40 mg SQ daily (WT < 150 kg, CrCl > 30 mL/min) *Enoxaparin/Lovenox 30 mg SQ daily (WT < 150 kg, CrCl > 10-29 mL/min) *Enoxaparin/Lovenox 30 mg SQ BID (WT < 150 kg, CrCl > 30 mL/min) AND *Sequential Compression Device (SCD) Assessment and Plan - Assessment and Plan Plan: Sepsis -Community-acquired pneumonia -UTI -Broad-spectrum antibiotic -Follow-up cultures and de-escalate -IV fluid resuscitation -Lactic acid trend Altered mental status -Due to sepsis and hypoglycemia -CT head negative -Neuro checks per unit protocol -Supportive care Diabetes -Insulin sliding scale -ADA diet Hypothyroidism -Repeat TSH -Resume home meds when available ESRD -HD per nephrology DVT GI prophylaxis -Teds SCDs -Subcu heparin -Pepcid 35 minutes of critical care
[2018-07-15] MEDS ORDERED: Acetaminophen 325 MG Tablet PO PRN ×2 (04:26→11:17)
[2018-07-15] MEDS ORDERED: Temazepam 15 MG Capsule PO PRN (04:26)
[2018-07-15] MEDS ORDERED: Morphine Sulfate Inj 2 MG/ML Vial IV.PUSH PRN (04:26)
[2018-07-15] MEDS ORDERED: Bisacodyl 10 MG Supp RECTAL PRN (04:26)
[2018-07-15] MEDS ORDERED: Sod Chloride 0.9% Inj 1,000 ML IV.CONT SCH (04:30)
[2018-07-15] MEDS ORDERED: Vancomycin Consult Pharmacy OTHER PRN (04:31)
[2018-07-15] MEDS ORDERED: Azithromycin Inj 500 MG in Sodium Chlor 0.9% Inj 250 ML IV.SIG SCH (05:00)
[2018-07-15] MEDS ORDERED: Vancomycin Inj 1,000 MG in Sodium Chlor 0.9% Inj 250 ML IV.SIG ONE (05:00)
[2018-07-15] MEDS ORDERED: Dextrose 50% in Water 50 ML Vial IV.PUSH PRN (05:16)
[2018-07-15] MEDS: Heparin - SQ 10,000 UNITS/ML Vial SQ SCH ×3 (06:22→21:49)
[2018-07-15] MEDS: Insulin NovoLOG Aspart Correctional Sugar Inj SQ SCH ×4 (08:41→20:23)
[2018-07-15] MEDS: Senna/Docusate Sodium 8.6/50 MG Tablet PO SCH ×2 (08:46→20:21)
[2018-07-15] MEDS ORDERED: hydrALAZINE 25 MG Tablet PO PRN (08:57)
[2018-07-15] MEDS ORDERED: Famotidine PF Inj 20 MG/2 ML Vial IV.PUSH SCH (09:00)
[2018-07-15] MEDS ORDERED: Enoxaparin Inj 30 MG/0.3 ML Syringe SQ SCH (09:00)
--- NOTE | 2018-07-15 09:09 | P.CONNP ---
History of Present Illness Service: Nephrology Reason for Consult: ESRD Primary Care Provider: UNKNOWN Family Provider: UNKNOWN History of Present Illness: Ms. Lundberg was admitted with altered mental status. In the ER she was hypoglycemic and hypothermic. Blood sugar was in the 20s. She was given D50, with improvement in her mental status. She denies missing dinner, apparently took the same amount of insulin as she usually does. Has history of diabetes, hypertension and ESRD Review of Systems All other systems reviewed negative except as stated in HPI Constitutional: Denies anorexia, Denies body ache(s) Eyes: Denies blind spots, Denies blurry vision Ears, Nose, Mouth, and Throat: Denies abnormal hearing, Denies bleeding gums, Denies pain with swallowing Cardiovascular: Denies chest pain, Denies irregular heart rhythm, Denies shortness of breath Gastrointestinal: Denies abdominal pain, Denies black, tarry stools Genitourinary: Denies painful urination Neurologic: Denies abnormal hearing Endocrine: Denies cold intolerance Allergic/Immunologic: Denies GI upset with certain foods, Denies hives, Denies throat swelling PMFSH - History History Provided By: Patient - Medical History Medical History: Medical History (Last Updated 07/15/18 @ 01:18 by Patrica Mao RN) Diabetes Hypothyroidism Presence of arterial-venous shunt (for dialysis) Renal disease - Tobacco History Second Hand Smoke Exposure: No Smoking Status: Former smoker Tobacco Type: Cigarettes - Alcohol History How Often Do You Have a Drink Containing Alcohol: Never - Substance Use History Substance History: No History of Abuse - Travel History Recent Travel in the [place] Within the Last 8 Weeks: No Recent Travel Out of the Country Within the Last 8 Weeks: No - Immunization History Tetanus Immunization: Unsure Hx Influenza Vaccine This Season: No Medications and Allergies Active Medications: Active Medications Acetaminophen (Tylenol) 650 mg PO Q6H PRN PRN Reason: PAIN 1-5 AND/OR FEVER >101F Al Hydroxide/Mg Hydroxide (Milk Of Magnesia Liq) 30 ml PO Q12H PRN PRN Reason: Mild Constipation Albuterol (Duoneb Neb (Prn)) 1 ampul NEB Q2HR NEB PRN PRN Reason: WHEEZING Allopurinol (Zyloprim) 100 mg PO DAILY [facility] Atorvastatin Calcium (Lipitor) 20 mg PO DAILY [facility] Bisacodyl (Dulcolax Supp) 10 mg RECTAL DAILY PRN PRN Reason: SEVERE CONSITIPATION Calcium Acetate (Phoslo) 2,001 mg PO DAILY [facility] Chlorhexidine Gluconate (Chlorhexidine 2% Cloth) 3 pack TOPICAL DAILY@0400 [facility] Stop: 07/21/18 03:59 Chlorhexidine Gluconate (Chlorhexidine 2% Cloth) 3 pack TOPICAL DAILY@0400 PRN PRN Reason: Extra cloth needed Stop: 07/21/18 03:59 Dextrose (D50w Vial) 50 ml IV.PUSH UNSCH PRN PRN Reason: PER HYPOGLYCEMIA PROTOCOL Glucagon (Glucagon Inj) 1 mg OTHER PRN PRN PRN Reason: for Hypoglycemia Protocol Heparin Sodium (Porcine) (Heparin Inj) 5,000 units SQ Q8HR [facility] Last Admin: 07/15/18 06:22 Dose: 5,000 units Hydralazine HCl (Apresoline) 25 mg PO TID PRN PRN Reason: sbp > 160 Cefepime HCl 1,000 mg/ Sodium (Chloride) 100 mls @ 200 mls/hr IV.SIG Q24H [facility] Last Admin: 07/15/18 08:40 Dose: 200 mls/hr Azithromycin 500 mg/ Sodium (Chloride) 250 mls @ 250 mls/hr IV.SIG Q24H [facility] Vancomycin HCl 500 mg/ Sodium (Chloride) 100 mls @ 200 mls/hr IV.SIG ONCE ONE Stop: 07/15/18 10:29 Insulin Aspart (Novolog Insulin Correctional Sugar Inj) 0 unit SQ ACHS [facility]; Protocol Last Admin: 07/15/18 08:41 Dose: Not Given Lactulose (Lactulose Liq) 30 ml PO DAILY PRN PRN Reason: SEVERE CONSITIPATION Metoprolol Tartrate (Lopressor) 12.5 mg PO Q6HR [facility] Morphine Sulfate (Morphine Inj) 2 mg IV.PUSH Q2H PRN PRN Reason: PAIN SCALE 6 TO 10 Ondansetron HCl (Zofran Inj) 4 mg IV.PUSH Q6H PRN PRN Reason: NAUSEA OR VOMITING Pantoprazole Sodium (Protonix) 40 mg PO DAILY [facility] Pharmacy Profile Note (Vancomycin Consult Pharmacy) 1 each OTHER UNSCH PRN PRN Reason: Pharmacy to dose Pregabalin (Lyrica) 75 mg PO DAILY [facility] Senna/Docusate Sodium (Dayan-Colace) 1 tab PO BID [facility] Last Admin: 07/15/18 08:46 Dose: Not Given Sennosides (Senokot) 17.2 mg PO Q12H PRN PRN Reason: Moderate Constipation Sodium Chloride (Ns Flush) 2 ml IV.FLUSH BID [facility] Last Admin: 07/15/18 08:41 Dose: 2 ml Sodium Chloride (Ns Flush) 2 ml IV.FLUSH PRN PRN PRN Reason: FLUSH AFTER USING IV ACCESS Temazepam (Restoril) 15 mg PO HS PRN PRN Reason: INSOMNIA Vitamin B Complex/Vit C/Folic Acid (Nephrocaps) 1 tab PO DAILY [facility] Allergies Allergy/AdvReac Type Severity Reaction Status Date / Time Sulfa (Sulfonamide Allergy Severe SWELLING, Verified 07/15/18 01:30 Antibiotics) HIVES ADHESIVE TAPE Allergy Intermediate REMOVES Uncoded 07/15/18 01:20 SKIN Home Medications Medication Instructions Recorded Confirmed Type B complex with C#20-folic acid 1 cap PO DAILY 07/15/18 07/15/18 History allopurinol 100 mg PO DAILY 07/15/18 07/15/18 History atorvastatin 20 mg PO DAILY 07/15/18 07/15/18 History calcium acetate 2,001 mg PO DAILY 07/15/18 07/15/18 History metoprolol tartrate [Lopressor] 50 mg PO HS 07/15/18 07/15/18 History pantoprazole 40 mg PO DAILY 07/15/18 07/15/18 History pregabalin [Lyrica] 75 mg PO DAILY 07/15/18 07/15/18 History Exam Vital signs: Vital Signs 07/15/18 01:10 07/15/18 01:13 07/15/18 01:21 Temperature 94.3 F L 94.3 F L Pulse Rate 83 84 Respiratory Rate 20 Blood Pressure 222/98 H Pulse Oximetry 86 L 07/15/18 01:24 07/15/18 03:17 07/15/18 05:16 Temperature 97.8 F Pulse Rate 84 88 Respiratory Rate 16 16 Blood Pressure 192/85 H 163/74 H Pulse Oximetry 99 97 07/15/18 05:30 07/15/18 06:00 07/15/18 06:08 Temperature 99.2 F 99.2 F Pulse Rate 93 H Respiratory Rate 21 Blood Pressure Pulse Oximetry 97 07/15/18 06:15 07/15/18 06:30 07/15/18 06:45 Temperature Pulse Rate 90 89 87 Respiratory Rate 15 15 Blood Pressure Pulse Oximetry 83 L 100 98 Intake & Output 07/14/18 07/15/18 07/15/18 18:59 06:59 18:59 Intake Total 125 / 125 Balance 125 / 125 Weight 78 kg Intake: IV 125 / 125 D50W Syringe 50 ML @ 0 mls/hr . 25 / 25 R[address] .[facility] Rx#:[id number] Rocephin Inj 1,000 MG In NS Inj 100 / 100 100 ML @ 200 mls/hr IV.SIG ONCE ONE Rx#:[id number] Other: Weight On Admission 78 kg - Constitutional no acute distress, obese - Routine HEENT Exam Head: Present: normocephalic, atraumatic Eye: Present: EOMI, PERRL ENT: Present: mucous membranes moist - Routine Neck Exam Present: supple. Absent: JVD, carotid bruit, lymphadenopathy - Routine Chest/Breast/Axilla Exam Chest wall: Absent: tenderness - Routine Respiratory Exam Present: CTA bilaterally. Absent: accessory muscle use, rales, respiratory distress - Routine Cardiovascular Exam Present: RRR, S1, S2 - Routine Abdominal Exam Present: soft, normoactive bowel sounds. Absent: tenderness - Routine Extremities Exam Present: full ROM, AV fistula. Absent: edema, joint swelling - Routine Neurological Exam Present: alert, oriented X3, CN II-XII intact Results - Lab Results 07/15/18 01:15 07/15/18 02:10 Most recent lab results Calcium 7.5 mg/dL (8.5-10.1) L 07/15/18 02:10 Assessment and Plan - Assessment (1) ESRD (end stage renal disease) on dialysis Code(s): N18.6 - End stage renal disease; Z99.2 - Dependence on renal dialysis Status: Acute Plan: Usually undergoes dialysis MWF. No need for dialysis today. Discontinue IVF. Avoid IV and BP access arm. Avoid Gadolinium. Monitor fluid and electrolytes. (2) Encephalopathy acute Code(s): G93.40 - Encephalopathy, unspecified Status: Acute Plan: due to hypoglycemia? Questionable sepsis? May have UTI/pneumonia. She has been placed on antibiotics. Patient feels much better, mental status is at baseline at this time. (3) Type 2 diabetes mellitus Code(s): E11.9 - Type 2 diabetes mellitus without complications Status: Acute Plan: Admitted with hypoglycemia. Now hypoglycemia has resolved. She may need to modify her insulin regimen. She takes Humalog 75/25 twice daily on a sliding scale, may need to take less. (4) Essential (primary) hypertension Code(s): I10 - Essential (primary) hypertension Status: Acute Plan: BP has been high. Restart her home medications which include Metoprolol and Entresto. - Attending Attestation Thanks for the consult. She can be discharged from renal standpoint.
[2018-07-15] MEDS ORDERED: Vancomycin Inj 500 MG in Sodium Chlor 0.9% Inj 100 ML IV.SIG ONE (10:00)
[2018-07-15] MEDS: Vitamin B Complex/Vit C/Folic Tablet PO SCH (10:53)
[2018-07-15] MEDS: Allopurinol 100 MG Tablet PO SCH (10:53)
[2018-07-15] MEDS: Pregabalin 75 MG Capsule PO SCH (10:54)
[2018-07-15] MEDS: Calcium Acetate 667 MG Capsule PO SCH (10:55)
[2018-07-15] MEDS ORDERED: Gelatin 12 MM/7 MM Topical Foam TOPICAL PRN (11:17)
[2018-07-15] MEDS ORDERED: Sod Chloride 0.9% Inj 1,000 ML OTHER PRN ×2 (11:17)
[2018-07-15] MEDS ORDERED: Heparin 10,000 UNITS/10 ML Vial (for IV use) OTHER PRN ×2 (11:17)
[2018-07-15] MEDS ORDERED: Albumin Human 25% Inj 100 ML IV.SIG PRN (11:17)
[2018-07-15] MEDS ORDERED: Sod Chloride 0.9% Inj 1,000 ML IV.CONT PRN (11:17)
[2018-07-15] MEDS ORDERED: Metoprolol Tartrate 25 MG Tablet PO SCH (12:00)
[2018-07-15] MEDS: hydrALAZINE HCl Inj 20 MG/ML Vial IV.PUSH PRN (15:37)
[2018-07-16] MEDS: hydrALAZINE HCl Inj 20 MG/ML Vial IV.PUSH PRN (03:15)
[2018-07-16] MEDS ORDERED: Chlorhexidine Gluconate 2% 1 Pack (2 Cloths) TOPICAL PRN (04:00)
[2018-07-16] MEDS ORDERED: Azithromycin Inj 500 MG in Sodium Chlor 0.9% Inj 250 ML IV.SIG SCH (04:00)
[2018-07-16] MEDS: Chlorhexidine Gluconate 2% 1 Pack (2 Cloths) TOPICAL SCH (04:25)
[2018-07-16] MEDS: Heparin - SQ 10,000 UNITS/ML Vial SQ SCH ×3 (05:31→22:57)
--- NOTE | 2018-07-16 09:22 | P.PNNP ---
Subjective Interval history: Patient was seen and examined. Her BP is much better. Sleeping comfortably. Physical Exam Vital signs: Vital Signs 07/15/18 12:00 07/15/18 12:45 07/15/18 13:00 Temperature 97.8 F Pulse Rate 84 88 86 Respiratory Rate 18 20 23 Blood Pressure 177/84 H Pulse Oximetry 95 07/15/18 13:15 07/15/18 13:16 07/15/18 13:30 Temperature Pulse Rate 85 84 86 Respiratory Rate 22 22 24 Blood Pressure 177/84 H Pulse Oximetry 97 98 89 L 07/15/18 13:45 07/15/18 14:00 07/15/18 14:15 Temperature Pulse Rate 81 84 83 Respiratory Rate 26 H 28 H 18 Blood Pressure 179/84 H Pulse Oximetry 97 100 98 07/15/18 14:30 07/15/18 14:45 07/15/18 15:00 Temperature Pulse Rate 81 83 81 Respiratory Rate 16 35 H 18 Blood Pressure 182/86 H Pulse Oximetry 07/15/18 15:15 07/15/18 15:29 07/15/18 15:30 Temperature Pulse Rate 81 82 82 Respiratory Rate 20 14 15 Blood Pressure 186/89 H Pulse Oximetry 80 L 07/15/18 15:35 07/15/18 15:44 07/15/18 15:45 Temperature Pulse Rate 82 82 82 Respiratory Rate 16 17 19 Blood Pressure 182/88 H 168/79 H Pulse Oximetry 74 L 07/15/18 16:00 07/15/18 16:15 07/15/18 16:30 Temperature 98.3 F Pulse Rate 86 87 88 Respiratory Rate 26 H 16 16 Blood Pressure 151/70 H Pulse Oximetry 100 07/15/18 16:45 07/15/18 17:00 07/15/18 17:15 Temperature Pulse Rate 84 86 89 Respiratory Rate 24 25 H 17 Blood Pressure 149/69 H Pulse Oximetry 94 L 07/15/18 17:30 07/15/18 17:45 07/15/18 18:00 Temperature Pulse Rate 87 84 83 Respiratory Rate 19 14 23 Blood Pressure 140/67 Pulse Oximetry 94 L 95 98 07/15/18 18:15 07/15/18 18:30 07/15/18 18:45 Temperature Pulse Rate 91 H 82 85 Respiratory Rate 23 16 21 Blood Pressure Pulse Oximetry 07/15/18 19:00 07/15/18 19:15 07/15/18 19:29 Temperature Pulse Rate 89 80 Respiratory Rate 19 17 Blood Pressure 154/71 H Pulse Oximetry 100 07/15/18 19:30 07/15/18 19:45 07/15/18 20:00 Temperature 99 F Pulse Rate 79 84 81 Respiratory Rate 15 24 17 Blood Pressure 157/74 H Pulse Oximetry 95 07/15/18 20:15 07/15/18 20:30 07/15/18 20:45 Temperature Pulse Rate 81 83 83 Respiratory Rate 15 21 24 Blood Pressure Pulse Oximetry 96 94 L 93 L 07/15/18 21:00 07/15/18 21:15 07/15/18 21:30 Temperature Pulse Rate 81 83 85 Respiratory Rate 16 21 14 Blood Pressure 152/70 H Pulse Oximetry 93 L 90 L 91 L 07/15/18 21:45 07/15/18 22:00 07/15/18 22:15 Temperature Pulse Rate 84 84 84 Respiratory Rate 14 15 18 Blood Pressure 147/68 H Pulse Oximetry 91 L 96 97 07/15/18 22:30 07/15/18 22:45 07/15/18 23:00 Temperature Pulse Rate 86 83 86 Respiratory Rate 24 25 H 2 L Blood Pressure 164/80 H Pulse Oximetry 96 94 L 96 07/15/18 23:15 07/15/18 23:30 07/15/18 23:45 Temperature Pulse Rate 86 86 87 Respiratory Rate 0 L 0 L 17 Blood Pressure Pulse Oximetry 94 L 94 L 94 L 07/16/18 00:00 07/16/18 00:14 07/16/18 00:15 Temperature Pulse Rate 85 85 84 Respiratory Rate 8 L 8 L 19 Blood Pressure 168/77 H 168/77 H Pulse Oximetry 94 L 94 L 95 07/16/18 00:16 07/16/18 00:30 07/16/18 00:45 Temperature Pulse Rate 84 83 83 Respiratory Rate 24 17 25 H Blood Pressure 165/76 H 167/69 H Pulse Oximetry 96 96 96 07/16/18 01:00 07/16/18 01:15 07/16/18 01:30 Temperature Pulse Rate 82 84 84 Respiratory Rate 17 18 20 Blood Pressure 163/75 H 176/77 H Pulse Oximetry 99 93 L 90 L 07/16/18 01:45 07/16/18 02:00 07/16/18 02:15 Temperature Pulse Rate 85 84 84 Respiratory Rate 14 15 14 Blood Pressure 164/72 H Pulse Oximetry 92 L 98 96 07/16/18 02:30 07/16/18 02:45 07/16/18 03:00 Temperature Pulse Rate 84 88 87 Respiratory Rate 16 Blood Pressure 177/76 H 182/81 H Pulse Oximetry 93 L 93 L 95 07/16/18 03:15 07/16/18 03:20 07/16/18 03:23 Temperature Pulse Rate 85 85 83 Respiratory Rate 14 Blood Pressure 180/80 H 169/68 H Pulse Oximetry 95 96 98 07/16/18 03:30 07/16/18 03:45 07/16/18 04:00 Temperature Pulse Rate 88 89 86 Respiratory Rate 18 36 H 15 Blood Pressure 134/67 112/59 L Pulse Oximetry 98 98 97 07/16/18 04:15 07/16/18 07:29 Temperature Pulse Rate 89 Respiratory Rate 15 Blood Pressure Pulse Oximetry 97 97 Intake & Output 07/15/18 07/16/18 07/16/18 18:59 06:59 18:59 Intake Total 1150 / 1150 500 / 500 Output Total 200 / 200 Balance 1150 / 1150 300 / 300 Weight 85 kg Intake: IV 450 / 450 250 / 250 Azithromycin Inj 500 MG In NS 250 / 250 Inj 250 ML @ 250 mls/hr IV.SIG Q24H [facility] Rx#:[id number] Maxipime Inj 1,000 MG In NS Inj 100 / 100 100 ML @ 200 mls/hr IV.SIG Q24H [facility] Rx#:[id number] Vancomycin Inj 500 MG In NS Inj 100 / 100 100 ML @ 200 mls/hr IV.SIG ONCE ONE Rx#:[id number] Oral 700 / 700 250 / 250 Output: Urine 200 / 200 Other: # Voids 1 Date of Last Bowel Movement 07/15/18 07/15/18 # Bowel Movements 1 - Constitutional no acute distress, mild distress - Routine HEENT Exam Head: Present: normocephalic, atraumatic Eye: Present: EOMI, PERRL - Routine Neck Exam Present: supple. Absent: JVD, carotid bruit - Routine Respiratory Exam Absent: CTA bilaterally - Routine Cardiovascular Exam Present: RRR, S1, S2 - Routine Abdominal Exam Present: normoactive bowel sounds. Absent: soft - Routine Extremities Exam Absent: cyanosis, clubbing, edema, full ROM - Routine Neurological Exam Present: alert, oriented X3, CN II-XII intact, normal speech - Routine Psychiatric Exam Present: normal affect Assessment and Plan - Assessment (1) ESRD (end stage renal disease) on dialysis Code(s): N18.6 - End stage renal disease; Z99.2 - Dependence on renal dialysis Status: Acute Plan: Usually undergoes dialysis MWF. Dialysis today. Monitor fluid and electrolytes. (2) Encephalopathy acute Code(s): G93.40 - Encephalopathy, unspecified Status: Acute Plan: due to hypoglycemia. Does not appear septic. May have UTI: urine culture growing Gram negative rods. Continue Cefepime, consider switching to PO. Patient feels much better, mental status is at baseline at this time. (3) Type 2 diabetes mellitus Code(s): E11.9 - Type 2 diabetes mellitus without complications Status: Acute Plan: Admitted with hypoglycemia. Now hypoglycemia has resolved. She may need to modify her insulin regimen. She takes Humalog 75/25 twice daily on a sliding scale, may need to take less. (4) Essential (primary) hypertension Code(s): I10 - Essential (primary) hypertension Status: Acute Plan: BP has been high. Restart her home medications which include Metoprolol and Entresto. - Attending Attestation Patient can be discharged from renal standpoint.
--- NOTE | 2018-07-16 09:54 | P.PNIM ---
Subjective Interval history: Pt is resting comfortably in bed. During the visit, she complained of some mild chest pain that was localized to her R chest wall without radiation or increase with respiration. She states the pain is only aggravated with movement of her torso, and was elicited with palpation. Otherwise, pt has no acute complaints and states that she slept well, has a good appetite and had two bowel movements since admission. Pt has a hx of ESRD on hemodialysis scheduled for today, she remains oliguric. She denies any fevers, cough, SOB, weakness, or chills. Physical Exam Vital signs: Vital Signs 07/15/18 12:00 07/15/18 12:45 07/15/18 13:00 Temperature 97.8 F Pulse Rate 84 88 86 Respiratory Rate 18 20 23 Blood Pressure 177/84 H Pulse Oximetry 95 07/15/18 13:15 07/15/18 13:16 07/15/18 13:30 Temperature Pulse Rate 85 84 86 Respiratory Rate 22 22 24 Blood Pressure 177/84 H Pulse Oximetry 97 98 89 L 07/15/18 13:45 07/15/18 14:00 07/15/18 14:15 Temperature Pulse Rate 81 84 83 Respiratory Rate 26 H 28 H 18 Blood Pressure 179/84 H Pulse Oximetry 97 100 98 07/15/18 14:30 07/15/18 14:45 07/15/18 15:00 Temperature Pulse Rate 81 83 81 Respiratory Rate 16 35 H 18 Blood Pressure 182/86 H Pulse Oximetry 07/15/18 15:15 07/15/18 15:29 07/15/18 15:30 Temperature Pulse Rate 81 82 82 Respiratory Rate 20 14 15 Blood Pressure 186/89 H Pulse Oximetry 80 L 07/15/18 15:35 07/15/18 15:44 07/15/18 15:45 Temperature Pulse Rate 82 82 82 Respiratory Rate 16 17 19 Blood Pressure 182/88 H 168/79 H Pulse Oximetry 74 L 07/15/18 16:00 07/15/18 16:15 07/15/18 16:30 Temperature 98.3 F Pulse Rate 86 87 88 Respiratory Rate 26 H 16 16 Blood Pressure 151/70 H Pulse Oximetry 100 07/15/18 16:45 07/15/18 17:00 07/15/18 17:15 Temperature Pulse Rate 84 86 89 Respiratory Rate 24 25 H 17 Blood Pressure 149/69 H Pulse Oximetry 94 L 07/15/18 17:30 07/15/18 17:45 07/15/18 18:00 Temperature Pulse Rate 87 84 83 Respiratory Rate 19 14 23 Blood Pressure 140/67 Pulse Oximetry 94 L 95 98 07/15/18 18:15 07/15/18 18:30 07/15/18 18:45 Temperature Pulse Rate 91 H 82 85 Respiratory Rate 23 16 21 Blood Pressure Pulse Oximetry 07/15/18 19:00 07/15/18 19:15 07/15/18 19:29 Temperature Pulse Rate 89 80 Respiratory Rate 19 17 Blood Pressure 154/71 H Pulse Oximetry 100 07/15/18 19:30 07/15/18 19:45 07/15/18 20:00 Temperature 99 F Pulse Rate 79 84 81 Respiratory Rate 15 24 17 Blood Pressure 157/74 H Pulse Oximetry 95 07/15/18 20:15 07/15/18 20:30 07/15/18 20:45 Temperature Pulse Rate 81 83 83 Respiratory Rate 15 21 24 Blood Pressure Pulse Oximetry 96 94 L 93 L 07/15/18 21:00 07/15/18 21:15 07/15/18 21:30 Temperature Pulse Rate 81 83 85 Respiratory Rate 16 21 14 Blood Pressure 152/70 H Pulse Oximetry 93 L 90 L 91 L 07/15/18 21:45 07/15/18 22:00 07/15/18 22:15 Temperature Pulse Rate 84 84 84 Respiratory Rate 14 15 18 Blood Pressure 147/68 H Pulse Oximetry 91 L 96 97 07/15/18 22:30 07/15/18 22:45 07/15/18 23:00 Temperature Pulse Rate 86 83 86 Respiratory Rate 24 25 H 2 L Blood Pressure 164/80 H Pulse Oximetry 96 94 L 96 07/15/18 23:15 07/15/18 23:30 07/15/18 23:45 Temperature Pulse Rate 86 86 87 Respiratory Rate 0 L 0 L 17 Blood Pressure Pulse Oximetry 94 L 94 L 94 L 07/16/18 00:00 07/16/18 00:14 07/16/18 00:15 Temperature Pulse Rate 85 85 84 Respiratory Rate 8 L 8 L 19 Blood Pressure 168/77 H 168/77 H Pulse Oximetry 94 L 94 L 95 07/16/18 00:16 07/16/18 00:30 07/16/18 00:45 Temperature Pulse Rate 84 83 83 Respiratory Rate 24 17 25 H Blood Pressure 165/76 H 167/69 H Pulse Oximetry 96 96 96 07/16/18 01:00 07/16/18 01:15 07/16/18 01:30 Temperature Pulse Rate 82 84 84 Respiratory Rate 17 18 20 Blood Pressure 163/75 H 176/77 H Pulse Oximetry 99 93 L 90 L 07/16/18 01:45 07/16/18 02:00 07/16/18 02:15 Temperature Pulse Rate 85 84 84 Respiratory Rate 14 15 14 Blood Pressure 164/72 H Pulse Oximetry 92 L 98 96 07/16/18 02:30 07/16/18 02:45 07/16/18 03:00 Temperature Pulse Rate 84 88 87 Respiratory Rate 16 Blood Pressure 177/76 H 182/81 H Pulse Oximetry 93 L 93 L 95 07/16/18 03:15 07/16/18 03:20 07/16/18 03:23 Temperature Pulse Rate 85 85 83 Respiratory Rate 14 Blood Pressure 180/80 H 169/68 H Pulse Oximetry 95 96 98 07/16/18 03:30 07/16/18 03:45 07/16/18 04:00 Temperature Pulse Rate 88 89 86 Respiratory Rate 18 36 H 15 Blood Pressure 134/67 112/59 L Pulse Oximetry 98 98 97 07/16/18 04:15 07/16/18 07:29 Temperature Pulse Rate 89 Respiratory Rate 15 Blood Pressure Pulse Oximetry 97 97 Intake & Output 07/15/18 07/16/18 07/16/18 18:59 06:59 18:59 Intake Total 1150 / 1150 500 / 500 Output Total 200 / 200 Balance 1150 / 1150 300 / 300 Weight 85 kg Intake: IV 450 / 450 250 / 250 Azithromycin Inj 500 MG In NS 250 / 250 Inj 250 ML @ 250 mls/hr IV.SIG Q24H [facility] Rx#:[id number] Maxipime Inj 1,000 MG In NS Inj 100 / 100 100 ML @ 200 mls/hr IV.SIG Q24H [facility] Rx#:[id number] Vancomycin Inj 500 MG In NS Inj 100 / 100 100 ML @ 200 mls/hr IV.SIG ONCE ONE Rx#:[id number] Oral 700 / 700 250 / 250 Output: Urine 200 / 200 Other: # Voids 1 Date of Last Bowel Movement 07/15/18 07/15/18 # Bowel Movements 1 - Constitutional no acute distress, obese - Routine HEENT Exam Head: Present: normocephalic, atraumatic Eye: Present: EOMI, PERRL. Absent: conjunctival icterus, scleral injection ENT: Present: mucous membranes moist - Routine Neck Exam Present: supple, trachea midline. Absent: JVD, lymphadenopathy, thyromegaly, tenderness - Routine Respiratory Exam Present: CTA bilaterally. Absent: accessory muscle use, rales, respiratory distress, rhonchi, wheezes - Routine Cardiovascular Exam Present: RRR, S1, S2. Absent: murmur, gallop, rubs - Routine Abdominal Exam Present: soft, normoactive bowel sounds. Absent: tenderness, distended, rebound - Routine Skin Exam Present: intact, dry - Routine Neurological Exam Present: alert, oriented X3 - Routine Psychiatric Exam Present: normal affect, normal thought process Results - Labs CBC & Chem 7: 07/16/18 09:30 07/16/18 09:30 Laboratory Results - last 24 hr 07/15/18 07/15/18 07/15/18 01:45 06:00 12:37 POC Glucose 127 H Urine Color Yellow Urine Clarity Turbid H Urine pH 6.0 Ur Specific [place] 1.009 Urine Protein 100 H Urine Glucose (UA) Negative Urine Ketones Negative Urine Occult Blood Small H Urine Nitrate Negative Urine Bilirubin Negative Urine Urobilinogen Less than 2 Ur Leukocyte Esterase Large H Urine RBC 13 H Urine WBC Urine WBC Clumps Many H Ur Squamous Epith Cells 1 Urine Bacteria Many H Micro UA Comment Culture indicated Urine Culture Comments Culture indicated Nasal Screen MRSA (PCR) Mrsa detected 07/15/18 07/15/18 07/16/18 16:39 20:18 09:23 POC Glucose 154 H 132 H 174 H Urine Color Urine Clarity Urine pH Ur Specific [place] Urine Protein Urine Glucose (UA) Urine Ketones Urine Occult Blood Urine Nitrate Urine Bilirubin Urine Urobilinogen Ur Leukocyte Esterase Urine RBC Urine WBC Urine WBC Clumps Ur Squamous Epith Cells Urine Bacteria Micro UA Comment Urine Culture Comments Nasal Screen MRSA (PCR) Microbiology 07/15/18 01:45 Clean Catch Urine Urine Culture - Preliminary gram negative rods Assessment and Plan - Assessment (1) Acute UTI Code(s): N39.0 - Urinary tract infection, site not specified Status: Acute Plan: Urine culture positive for ESBL. Will switch antibiotics to IV Zosyn and d/c cefepime. Will continue to monitor patient for clinical systemic signs of infection. (2) ESRD (end stage renal disease) on dialysis Code(s): N18.6 - End stage renal disease; Z99.2 - Dependence on renal dialysis Status: Acute Plan: Followed by nephrology. Pt on hemodialysis, scheduled MWF. Will continue to monitor BUN, Cr and electrolytes. Avoid nephrotoxic agents. Monitor I/Os. (3) Encephalopathy acute Code(s): G93.40 - Encephalopathy, unspecified Status: Acute Plan: Resolved. Pt is A&Ox3. Will continue to monitor mental status routinely. (4) Essential (primary) hypertension Code(s): I10 - Essential (primary) hypertension Status: Acute Plan: BP controlled with administration of home medications. Continue to monitor with telemetry. (5) Hypoglycemia associated with diabetes Code(s): E11.649 - Type 2 diabetes mellitus with hypoglycemia without coma Status: Acute Plan: Pt has been consistently WNL for BS and has only received 2units of insulin since admission.Will check her HbA1c to assess her need for insulin treatment. Continue to monitor POC BS before meals and at night, with sliding scale insulin. (6) Pneumonia involving left lung Code(s): J18.9 - Pneumonia, unspecified organism Status: Acute Plan: Will continue to monitor. D/c IV cefepime and switch to IV Zosyn. (7) Type 2 diabetes mellitus Code(s): E11.9 - Type 2 diabetes mellitus without complications Status: Acute Plan: Monitor blood glucose before meals and a night. Sliding scale insulin adjusted accordingly. (6) Pneumonia involving left lung Qualifiers: Pneumonia type: due to unspecified organism Lung location: lower lobe of lung Qualified Code(s): J18.1 - Lobar pneumonia, unspecified organism
[2018-07-16 10:01] LABS: Baso % (Auto) 0.6 % (0.0-2.0); Eos # (Auto) 0.2 th/mm3 (0.0-0.4); Eos % (Auto) 2.1 % (0.0-4.0); Hematocrit 33.2 % (35.0-46.0); Hemoglobin 10.7 gm/dL (11.6-15.3); Lymph # (Auto) 0.8 th/mm3 (1.0-4.8); Lymph % (Auto) 10.3 % (9.0-44.0); Mean Corpuscular HGB Conc 32.2 % (32.0-36.0); Mean Corpuscular Hemoglobin 28.7 pg (27.0-34.0); Mono # (Auto) 0.7 th/mm3 (0.0-0.9); Mono % (Auto) 9.1 % (0.0-8.0); Neut # (Auto) 6.1 th/mm3 (1.8-7.7); Neut % (Auto) 77.9 % (16.0-70.0); Platelet Count 172 th/mm3 (150-450); Red Blood Count 3.73 mil/mm3 (4.00-5.30); Red Cell Distribution Width 14.2 % (11.6-17.2); White Blood Count 7.9 th/mm3 (4.0-11.0)
[2018-07-16 10:26] LABS: Albumin 2.6 g/dL (3.4-5.0); Calcium 7.2 mg/dL (8.5-10.1); Carbon Dioxide 21.1 meq/L (21.0-32.0); Magnesium 2.2 mg/dL (1.5-2.5); Phosphorus 6.7 mg/dL (2.5-4.9); Potassium 5.2 meq/L (3.5-5.1); Total Protein 6.6 g/dL (6.4-8.2); Vancomycin,Random 18.3 Comment
[2018-07-16 10:38] LABS: Activated Partial Thrombo Time 33.1 sec (24.3-30.1); INR 1.1 Ratio; Prothrombin Time 10.8 sec (9.8-11.6)
[2018-07-16] MEDS: Insulin NovoLOG Aspart Correctional Sugar Inj SQ SCH ×4 (13:15→20:24)
[2018-07-16] MEDS: Pregabalin 75 MG Capsule PO SCH (14:03)
[2018-07-16] MEDS: Allopurinol 100 MG Tablet PO SCH (14:03)
[2018-07-16] MEDS: Calcium Acetate 667 MG Capsule PO SCH (14:04)
[2018-07-16] MEDS: Senna/Docusate Sodium 8.6/50 MG Tablet PO SCH ×2 (14:06→20:25)
[2018-07-16] MEDS: Vitamin B Complex/Vit C/Folic Tablet PO SCH (14:06)
[2018-07-16] MEDS: Piperacil/Tazo 2.25 GM Premix 50 ML IV.SIG SCH (14:07)
--- NOTE | 2018-07-16 17:12 | P.PNIM ---
Subjective Interval history: Patient seen earlier today. She reports feeling better overall. No new issues. Physical Exam Vital signs: Vital Signs 07/15/18 17:15 07/15/18 17:30 07/15/18 17:45 Temperature Pulse Rate 89 87 84 Respiratory Rate 17 19 14 Blood Pressure Pulse Oximetry 94 L 94 L 95 07/15/18 18:00 07/15/18 18:15 07/15/18 18:30 Temperature Pulse Rate 83 91 H 82 Respiratory Rate 23 23 16 Blood Pressure 140/67 Pulse Oximetry 98 07/15/18 18:45 07/15/18 19:00 07/15/18 19:15 Temperature Pulse Rate 85 89 80 Respiratory Rate 21 19 17 Blood Pressure 154/71 H Pulse Oximetry 07/15/18 19:29 07/15/18 19:30 07/15/18 19:45 Temperature Pulse Rate 79 84 Respiratory Rate 15 24 Blood Pressure Pulse Oximetry 100 07/15/18 20:00 07/15/18 20:15 07/15/18 20:30 Temperature 99 F Pulse Rate 81 81 83 Respiratory Rate 17 15 21 Blood Pressure 157/74 H Pulse Oximetry 95 96 94 L 07/15/18 20:45 07/15/18 21:00 07/15/18 21:15 Temperature Pulse Rate 83 81 83 Respiratory Rate 24 16 21 Blood Pressure 152/70 H Pulse Oximetry 93 L 93 L 90 L 07/15/18 21:30 07/15/18 21:45 07/15/18 22:00 Temperature Pulse Rate 85 84 84 Respiratory Rate 14 14 15 Blood Pressure 147/68 H Pulse Oximetry 91 L 91 L 96 07/15/18 22:15 07/15/18 22:30 07/15/18 22:45 Temperature Pulse Rate 84 86 83 Respiratory Rate 18 24 25 H Blood Pressure Pulse Oximetry 97 96 94 L 07/15/18 23:00 07/15/18 23:15 07/15/18 23:30 Temperature Pulse Rate 86 86 86 Respiratory Rate 2 L 0 L 0 L Blood Pressure 164/80 H Pulse Oximetry 96 94 L 94 L 07/15/18 23:45 07/16/18 00:00 07/16/18 00:14 Temperature Pulse Rate 87 85 85 Respiratory Rate 17 8 L 8 L Blood Pressure 168/77 H 168/77 H Pulse Oximetry 94 L 94 L 94 L 07/16/18 00:15 07/16/18 00:16 07/16/18 00:30 Temperature Pulse Rate 84 84 83 Respiratory Rate 19 24 17 Blood Pressure 165/76 H 167/69 H Pulse Oximetry 95 96 96 07/16/18 00:45 07/16/18 01:00 07/16/18 01:15 Temperature Pulse Rate 83 82 84 Respiratory Rate 25 H 17 18 Blood Pressure 163/75 H Pulse Oximetry 96 99 93 L 07/16/18 01:30 07/16/18 01:45 07/16/18 02:00 Temperature Pulse Rate 84 85 84 Respiratory Rate 20 14 15 Blood Pressure 176/77 H 164/72 H Pulse Oximetry 90 L 92 L 98 07/16/18 02:15 07/16/18 02:30 07/16/18 02:45 Temperature Pulse Rate 84 84 88 Respiratory Rate 14 16 Blood Pressure 177/76 H Pulse Oximetry 96 93 L 93 L 07/16/18 03:00 07/16/18 03:15 07/16/18 03:20 Temperature Pulse Rate 87 85 85 Respiratory Rate Blood Pressure 182/81 H 180/80 H Pulse Oximetry 95 95 96 07/16/18 03:23 07/16/18 03:30 07/16/18 03:45 Temperature Pulse Rate 83 88 89 Respiratory Rate 14 18 36 H Blood Pressure 169/68 H 134/67 Pulse Oximetry 98 98 98 07/16/18 04:00 07/16/18 04:15 07/16/18 07:29 Temperature Pulse Rate 86 89 Respiratory Rate 15 15 Blood Pressure 112/59 L Pulse Oximetry 97 97 97 07/16/18 08:00 07/16/18 09:00 07/16/18 16:00 Temperature 98.7 F 98.0 F Pulse Rate 87 90 87 Respiratory Rate 15 14 Blood Pressure 135/61 167/70 H Pulse Oximetry 81 L 100 Intake & Output 07/15/18 07/16/18 07/16/18 18:59 06:59 18:59 Intake Total 1150 / 1150 500 / 500 Output Total 200 / 200 3000 / 3000 Balance 1150 / 1150 300 / 300 -3000 / -3000 Weight 85 kg Intake: IV 450 / 450 250 / 250 Azithromycin Inj 500 MG In NS 250 / 250 Inj 250 ML @ 250 mls/hr IV.SIG Q24H [facility] Rx#:[id number] Maxipime Inj 1,000 MG In NS Inj 100 / 100 100 ML @ 200 mls/hr IV.SIG Q24H [facility] Rx#:[id number] Vancomycin Inj 500 MG In NS Inj 100 / 100 100 ML @ 200 mls/hr IV.SIG ONCE ONE Rx#:[id number] Oral 700 / 700 250 / 250 Output: Urine 200 / 200 Hemodialysis Amount 3000 / 3000 Other: # Voids 1 Date of Last Bowel Movement 07/15/18 07/15/18 07/16/18 # Bowel Movements 1 Narrative: GENERAL: This is a well-nourished, well-developed patient, in no apparent distress. CARDIOVASCULAR: Normal rate and regular rhythm without murmurs, gallops, or rubs. RESPIRATORY: Good respiratory efforts. Breath sounds equal and clear to auscultation bilaterally. GASTROINTESTINAL: Abdomen soft, non-tender, non-distended. Normal active bowel sounds MUSCULOSKELETAL: Extremities without cyanosis, or edema. NEURO: Alert & Oriented x4 to person, place, time, situation. Moves all ext x4 PSYCH: Appropriate mood and affect. Results - Labs CBC & Chem 7: 07/16/18 09:30 07/16/18 09:30 Laboratory Results - last 24 hr 07/15/18 07/16/18 07/16/18 20:18 09:23 09:30 WBC RBC Hgb Hct MCV MCH MCHC RDW Plt Count MPV Neut % (Auto) Lymph % (Auto) [place] % (Auto) Eos % (Auto) Baso % (Auto) Neut # (Auto) Lymph # (Auto) [place] # (Auto) Eos # (Auto) Baso # (Auto) WBC Differential Differential Comment PT INR APTT Sodium Potassium Chloride Carbon Dioxide Anion Gap BUN Creatinine Estimated GFR POC Glucose 132 H 174 H Random Glucose Lactic Acid 0.7 Calcium Prot Corrected Calcium Phosphorus Magnesium Total Bilirubin AST ALT Alkaline Phosphatase Total Protein Albumin Procalcitonin Random Vancomycin 07/16/18 07/16/18 07/16/18 09:30 09:30 09:30 WBC 7.9 RBC 3.73 L Hgb 10.7 L Hct 33.2 L MCV 89.0 MCH 28.7 MCHC 32.2 RDW 14.2 Plt Count 172 MPV 9.0 Neut % (Auto) 77.9 H Lymph % (Auto) 10.3 [place] % (Auto) 9.1 H Eos % (Auto) 2.1 Baso % (Auto) 0.6 Neut # (Auto) 6.1 Lymph # (Auto) 0.8 L [place] # (Auto) 0.7 Eos # (Auto) 0.2 Baso # (Auto) 0.0 WBC Differential . Differential Comment Auto diff final PT 10.8 INR 1.1 APTT 33.1 H Sodium Potassium Chloride Carbon Dioxide Anion Gap BUN Creatinine Estimated GFR POC Glucose Random Glucose Lactic Acid Calcium Prot Corrected Calcium Phosphorus Magnesium Total Bilirubin AST ALT Alkaline Phosphatase Total Protein Albumin Procalcitonin 0.22 H Random Vancomycin 07/16/18 07/16/18 09:30 13:32 WBC RBC Hgb Hct MCV MCH MCHC RDW Plt Count MPV Neut % (Auto) Lymph % (Auto) [place] % (Auto) Eos % (Auto) Baso % (Auto) Neut # (Auto) Lymph # (Auto) [place] # (Auto) Eos # (Auto) Baso # (Auto) WBC Differential Differential Comment PT INR APTT Sodium 142 Potassium 5.2 H D Chloride 104 Carbon Dioxide 21.1 Anion Gap 17 H BUN 72 H Creatinine 11.24 H* D Estimated GFR 4 L POC Glucose 119 H Random Glucose 170 H Lactic Acid Calcium 7.2 L* Prot Corrected Calcium 7.5 L Phosphorus 6.7 H Magnesium 2.2 Total Bilirubin 0.5 AST 11 L ALT 16 Alkaline Phosphatase 102 Total Protein 6.6 D Albumin 2.6 L D Procalcitonin Random Vancomycin 18.3 Microbiology 07/15/18 01:20 Blood - Peripheral Aerobic Blood Culture - Preliminary No growth in 1 day 07/15/18 01:20 Blood - Peripheral Anaerobic Blood Culture - Preliminary No growth in 1 day 07/15/18 01:15 Blood - Peripheral Aerobic Blood Culture - Preliminary No growth in 1 day 07/15/18 01:15 Blood - Peripheral Anaerobic Blood Culture - Preliminary No growth in 1 day 07/15/18 01:45 Clean Catch Urine Urine Culture - Final Escherichia coli ESBL positive Assessment and Plan - Assessment (1) Acute UTI Code(s): N39.0 - Urinary tract infection, site not specified Status: Acute Plan: Urine culture positive for ESBL. Will switch antibiotics to IV Zosyn and d/c cefepime. Will continue to monitor patient for clinical systemic signs of infection. Plan to transition to Augmentin tomorrow. (2) ESRD (end stage renal disease) on dialysis Code(s): N18.6 - End stage renal disease; Z99.2 - Dependence on renal dialysis Status: Acute Plan: Followed by nephrology. Pt on hemodialysis, scheduled MWF. Will continue to monitor BUN, Cr and electrolytes. Avoid nephrotoxic agents. Monitor I/Os. Dialysis today. (3) Encephalopathy acute Code(s): G93.40 - Encephalopathy, unspecified Status: Acute Plan: Resolved. Pt is A&Ox3. Will continue to monitor mental status routinely. (4) Essential (primary) hypertension Code(s): I10 - Essential (primary) hypertension Status: Acute Plan: BP controlled with administration of home medications. Continue to monitor with telemetry. (5) Hypoglycemia associated with diabetes Code(s): E11.649 - Type 2 diabetes mellitus with hypoglycemia without coma Status: Acute Plan: Pt has been consistently WNL for BS and has only received 2units of insulin since admission.Will check her HbA1c to assess her need for insulin treatment. Continue to monitor POC BS before meals and at night, with sliding scale insulin. (6) Pneumonia involving left lung Code(s): J18.9 - Pneumonia, unspecified organism Status: Acute Plan: Will continue to monitor. D/c IV cefepime and switch to IV Zosyn. (7) Type 2 diabetes mellitus Code(s): E11.9 - Type 2 diabetes mellitus without complications Status: Acute Plan: Monitor blood glucose before meals and a night. Sliding scale insulin adjusted accordingly. - Plan Discharge Planning: Possible DC tomorrow (6) Pneumonia involving left lung Qualifiers: Pneumonia type: due to unspecified organism Lung location: lower lobe of lung Qualified Code(s): J18.1 - Lobar pneumonia, unspecified organism
[2018-07-17] MEDS: Piperacil/Tazo 2.25 GM Premix 50 ML IV.SIG SCH (01:21)
[2018-07-17] MEDS: hydrALAZINE HCl Inj 20 MG/ML Vial IV.PUSH PRN (04:52)
[2018-07-17] MEDS: Chlorhexidine Gluconate 2% 1 Pack (2 Cloths) TOPICAL SCH (04:54)
[2018-07-17] MEDS: Heparin - SQ 10,000 UNITS/ML Vial SQ SCH (05:01)
[2018-07-17 05:03] LABS: Hematocrit 36.2 % (35.0-46.0); Hemoglobin 11.8 gm/dL (11.6-15.3); Mean Corpuscular HGB Conc 32.6 % (32.0-36.0); Mean Corpuscular Hemoglobin 28.4 pg (27.0-34.0); Mean Corpuscular Volume 87.2 fL (80.0-100.0); Mean Platelet Volume 9.4 fL (7.0-11.0); Platelet Count 180 th/mm3 (150-450); Red Blood Count 4.15 mil/mm3 (4.00-5.30); Red Cell Distribution Width 14.5 % (11.6-17.2); White Blood Count 7.7 th/mm3 (4.0-11.0)
[2018-07-17 05:25] LABS: Calcium 7.9 mg/dL (8.5-10.1); Carbon Dioxide 26.3 meq/L (21.0-32.0); Potassium 4.5 meq/L (3.5-5.1); Vancomycin,Random 26.3 Comment
[2018-07-17 07:13] VITALS: O2SAT 99
[2018-07-17 08:05] VITALS: BP 158/66; RESP 15; TEMP 97.6
--- NOTE | 2018-07-17 08:33 | P.PNIM ---
Subjective Interval history: Pt sleeping comfortably in bed. Upon awakening, pt denies any acute complaints. Pt reports tolerating her hemodialysis well yesterday. She reports a good appetite and a normal bowel movement. She is oliguric from ESRD. She denies any chest pain, SOB, fevers, nausea, vomiting, diarrhea or constipation. Physical Exam Vital signs: Vital Signs 07/16/18 09:00 07/16/18 16:00 07/16/18 20:00 Temperature 98.0 F 99.3 F Pulse Rate 90 87 92 H Respiratory Rate 14 19 Blood Pressure 167/70 H 161/69 H Pulse Oximetry 100 95 07/17/18 00:00 07/17/18 00:30 07/17/18 00:45 Temperature 98.8 F Pulse Rate 92 H 81 80 Respiratory Rate 17 14 13 Blood Pressure 140/65 140/63 Pulse Oximetry 97 95 97 07/17/18 01:00 07/17/18 01:15 07/17/18 01:30 Temperature Pulse Rate 81 80 79 Respiratory Rate 14 13 13 Blood Pressure 132/60 140/61 Pulse Oximetry 97 100 95 07/17/18 01:45 07/17/18 02:00 07/17/18 02:15 Temperature Pulse Rate 80 77 79 Respiratory Rate 13 14 13 Blood Pressure 135/56 L Pulse Oximetry 94 L 94 L 95 07/17/18 02:30 07/17/18 02:45 07/17/18 03:00 Temperature Pulse Rate 80 79 80 Respiratory Rate 15 13 17 Blood Pressure 140/63 130/58 L Pulse Oximetry 95 97 100 07/17/18 03:15 07/17/18 03:30 07/17/18 03:45 Temperature Pulse Rate 83 87 92 H Respiratory Rate 13 13 54 H Blood Pressure 148/60 H Pulse Oximetry 97 99 82 L 07/17/18 04:00 07/17/18 04:03 07/17/18 04:15 Temperature 98.4 F Pulse Rate 96 H 89 84 Respiratory Rate 37 H 33 H 34 H Blood Pressure 181/89 H 183/77 H Pulse Oximetry 99 99 89 L 07/17/18 04:30 07/17/18 04:41 07/17/18 04:45 Temperature Pulse Rate 88 89 88 Respiratory Rate 34 H 22 32 H Blood Pressure 181/89 H 179/77 H Pulse Oximetry 86 L 07/17/18 05:00 07/17/18 05:15 07/17/18 05:30 Temperature Pulse Rate 86 86 88 Respiratory Rate 7 L 14 14 Blood Pressure 161/67 H 157/66 H Pulse Oximetry 97 97 97 07/17/18 05:45 07/17/18 06:00 07/17/18 06:15 Temperature Pulse Rate 87 87 88 Respiratory Rate 14 14 16 Blood Pressure 153/65 H Pulse Oximetry 99 98 07/17/18 06:30 07/17/18 06:45 07/17/18 07:00 Temperature Pulse Rate 89 86 86 Respiratory Rate 12 12 12 Blood Pressure 156/66 H 150/63 H Pulse Oximetry 98 98 99 07/17/18 07:15 07/17/18 07:23 07/17/18 07:30 Temperature Pulse Rate 85 92 H Respiratory Rate 12 8 L Blood Pressure 161/70 H Pulse Oximetry 99 99 97 07/17/18 07:45 07/17/18 08:00 Temperature 97.6 F Pulse Rate 82 83 Respiratory Rate 13 15 Blood Pressure 158/66 H Pulse Oximetry 100 99 Intake & Output 07/16/18 07/17/18 07/17/18 18:59 06:59 18:59 Intake Total 50 / 50 390 / 390 Output Total 3100 / 3100 Balance -3050 / -3050 390 / 390 Weight 77.5 kg Intake: IV 50 / 50 150 / 150 Zosyn 2.25 GM Premix 50 ML @ 50 / 50 50 / 50 100 mls/hr IV.SIG Q12H ZANE Rx#: [id number] Vancomycin Inj 500 MG In NS Inj 100 / 100 100 ML @ 200 mls/hr IV.SIG ONCE ONE Rx#:[id number] Oral 240 / 240 Output: Urine 100 / 100 Hemodialysis Amount 3000 / 3000 Other: # Voids 1 Date of Last Bowel Movement 07/16/18 07/16/18 # Bowel Movements 1 0 - Constitutional no acute distress, obese, cooperative - Routine HEENT Exam Head: Present: normocephalic, atraumatic Eye: Present: EOMI. Absent: conjunctival icterus, scleral injection - Routine Neck Exam Present: supple, trachea midline. Absent: JVD, lymphadenopathy, thyromegaly, tenderness - Routine Respiratory Exam Present: CTA bilaterally. Absent: accessory muscle use, rales, rhonchi, stridor , wheezes, crackles - Routine Cardiovascular Exam Present: RRR, S1, S2. Absent: gallop, rubs Comments: Systolic ejection murmur - Routine Abdominal Exam Present: soft, normoactive bowel sounds. Absent: tenderness, distended, rebound - Routine Skin Exam Present: intact, dry. Absent: cyanosis, erythema - Routine Neurological Exam Present: alert, oriented X3, CN II-XII intact Results - Labs CBC & Chem 7: 07/17/18 03:32 07/17/18 03:32 Laboratory Results - last 24 hr 07/16/18 07/16/18 07/16/18 09:23 09:30 09:30 WBC RBC Hgb Hct MCV MCH MCHC RDW Plt Count MPV Neut % (Auto) Lymph % (Auto) Esmeralda % (Auto) Eos % (Auto) Baso % (Auto) Neut # (Auto) Lymph # (Auto) Esmeralda # (Auto) Eos # (Auto) Baso # (Auto) WBC Differential Differential Comment PT INR APTT Sodium Potassium Chloride Carbon Dioxide Anion Gap BUN Creatinine Estimated GFR POC Glucose 174 H Random Glucose Hemoglobin A1c Lactic Acid 0.7 Calcium Prot Corrected Calcium Phosphorus Magnesium Total Bilirubin AST ALT Alkaline Phosphatase Total Protein Albumin Procalcitonin 0.22 H Random Vancomycin 07/16/18 07/16/18 07/16/18 09:30 09:30 09:30 WBC 7.9 RBC 3.73 L Hgb 10.7 L Hct 33.2 L MCV 89.0 MCH 28.7 MCHC 32.2 RDW 14.2 Plt Count 172 MPV 9.0 Neut % (Auto) 77.9 H Lymph % (Auto) 10.3 Esmeralda % (Auto) 9.1 H Eos % (Auto) 2.1 Baso % (Auto) 0.6 Neut # (Auto) 6.1 Lymph # (Auto) 0.8 L Esmeralda # (Auto) 0.7 Eos # (Auto) 0.2 Baso # (Auto) 0.0 WBC Differential . Differential Comment Auto diff final PT 10.8 INR 1.1 APTT 33.1 H Sodium 142 Potassium 5.2 H D Chloride 104 Carbon Dioxide 21.1 Anion Gap 17 H BUN 72 H Creatinine 11.24 H* D Estimated GFR 4 L POC Glucose Random Glucose 170 H Hemoglobin A1c Lactic Acid Calcium 7.2 L* Prot Corrected Calcium 7.5 L Phosphorus 6.7 H Magnesium 2.2 Total Bilirubin 0.5 AST 11 L ALT 16 Alkaline Phosphatase 102 Total Protein 6.6 D Albumin 2.6 L D Procalcitonin Random Vancomycin 18.3 07/16/18 07/16/18 07/16/18 09:30 13:32 17:59 WBC RBC Hgb Hct MCV MCH MCHC RDW Plt Count MPV Neut % (Auto) Lymph % (Auto) Esmeralda % (Auto) Eos % (Auto) Baso % (Auto) Neut # (Auto) Lymph # (Auto) Esmeralda # (Auto) Eos # (Auto) Baso # (Auto) WBC Differential Differential Comment PT INR APTT Sodium Potassium Chloride Carbon Dioxide Anion Gap BUN Creatinine Estimated GFR POC Glucose 119 H 279 H Random Glucose Hemoglobin A1c 8.0 H Lactic Acid Calcium Prot Corrected Calcium Phosphorus Magnesium Total Bilirubin AST ALT Alkaline Phosphatase Total Protein Albumin Procalcitonin Random Vancomycin 07/16/18 07/17/18 07/17/18 20:16 03:32 03:32 WBC 7.7 RBC 4.15 Hgb 11.8 Hct 36.2 MCV 87.2 MCH 28.4 MCHC 32.6 RDW 14.5 Plt Count 180 MPV 9.4 Neut % (Auto) Lymph % (Auto) Esmeralda % (Auto) Eos % (Auto) Baso % (Auto) Neut # (Auto) Lymph # (Auto) Esmeralda # (Auto) Eos # (Auto) Baso # (Auto) WBC Differential Differential Comment PT INR APTT Sodium 137 Potassium 4.5 Chloride 98 Carbon Dioxide 26.3 Anion Gap 13 BUN 53 H Creatinine 8.73 H Estimated GFR 6 L POC Glucose 309 H Random Glucose 152 H Hemoglobin A1c Lactic Acid Calcium 7.9 L Prot Corrected Calcium Phosphorus Magnesium Total Bilirubin AST ALT Alkaline Phosphatase Total Protein Albumin Procalcitonin Random Vancomycin 26.3 07/17/18 07:49 WBC RBC Hgb Hct MCV MCH MCHC RDW Plt Count MPV Neut % (Auto) Lymph % (Auto) Esmeralda % (Auto) Eos % (Auto) Baso % (Auto) Neut # (Auto) Lymph # (Auto) Esmeralda # (Auto) Eos # (Auto) Baso # (Auto) WBC Differential Differential Comment PT INR APTT Sodium Potassium Chloride Carbon Dioxide Anion Gap BUN Creatinine Estimated GFR POC Glucose 200 H Random Glucose Hemoglobin A1c Lactic Acid Calcium Prot Corrected Calcium Phosphorus Magnesium Total Bilirubin AST ALT Alkaline Phosphatase Total Protein Albumin Procalcitonin Random Vancomycin Microbiology 07/15/18 01:20 Blood - Peripheral Aerobic Blood Culture - Preliminary No growth in 1 day 07/15/18 01:20 Blood - Peripheral Anaerobic Blood Culture - Preliminary No growth in 1 day 07/15/18 01:15 Blood - Peripheral Aerobic Blood Culture - Preliminary No growth in 1 day 07/15/18 01:15 Blood - Peripheral Anaerobic Blood Culture - Preliminary No growth in 1 day 07/15/18 01:45 Clean Catch Urine Urine Culture - Final Escherichia coli ESBL positive Assessment and Plan - Assessment (1) Acute UTI Code(s): N39.0 - Urinary tract infection, site not specified Status: Acute Plan: Urine culture positive for ESBL. -continue IV antibiotics -contact precautions (2) ESRD (end stage renal disease) on dialysis Code(s): N18.6 - End stage renal disease; Z99.2 - Dependence on renal dialysis Status: Acute Plan: Pt on hemodialysis, last treatment yesterday. -continue to monitor renal function and electrolytes -avoid nephrotoxins (3) Encephalopathy acute Code(s): G93.40 - Encephalopathy, unspecified Status: Acute Plan: Resolved. -Pt alert and oriented x3, and cooperative -continue to monitor for clinical deterioration (4) Essential (primary) hypertension Code(s): I10 - Essential (primary) hypertension Status: Acute (5) Hypoglycemia associated with diabetes Code(s): E11.649 - Type 2 diabetes mellitus with hypoglycemia without coma Status: Acute Plan: Resolved. -continue to monitor blood glucose before meals and at night -sliding scale insulin -HbA1c was 8.0, indicating intermediately controlled DM. (6) Pneumonia involving left lung Code(s): J18.9 - Pneumonia, unspecified organism Status: Acute (7) Type 2 diabetes mellitus Code(s): E11.9 - Type 2 diabetes mellitus without complications Status: Acute (6) Pneumonia involving left lung Qualifiers: Qualified Code(s): J18.1 - Lobar pneumonia, unspecified organism
[2018-07-17] MEDS: Senna/Docusate Sodium 8.6/50 MG Tablet PO SCH (08:40)
[2018-07-17] MEDS: Calcium Acetate 667 MG Capsule PO SCH (08:40)
[2018-07-17] MEDS: Pregabalin 75 MG Capsule PO SCH (08:41)
[2018-07-17] MEDS: Vitamin B Complex/Vit C/Folic Tablet PO SCH (08:41)
[2018-07-17] MEDS: Allopurinol 100 MG Tablet PO SCH (08:41)
[2018-07-17] MEDS: Insulin NovoLOG Aspart Correctional Sugar Inj SQ SCH (08:43)
--- NOTE | 2018-07-17 09:02 | P.DS ---
Date of admission: 07/15/18 03:29 Primary care physician: UNKNOWN Brief History from admission: HPI from the admitting physician: 62-year-old female with history of ESRD on HD, diabetes mellitus presents for an evaluation of altered mental status. Per chart review the 911 was called due to poor responsiveness to family. Upon arrival of EMS found the patient's Accu-Chek to be in the 20s, the patient was given D50 and the patient regained consciousness and was able to speak with them and give a history that she had given herself insulin and did not eat a meal for dinner. In the emergency department she was also found to be hypothermic with a temperature of 94. Chest x-ray shows questionable left lower lobe infiltrate suggesting developing pneumonia, also urinalysis shows signs of urinary tract infection. Patient has been admitted to ICU with a diagnosis of sepsis. Patient update on day of discharge: Patient reports she is feeling much better today. Anxious to go home. Denies fever or chills. No abdominal pain. We discussed at home insulin regimen and the need to follow-up outpatient with PCP. DS: Diagnosis - Discharge Diagnosis (1) Acute UTI Status: Acute (2) ESRD (end stage renal disease) on dialysis Status: Acute (3) Encephalopathy acute Status: Acute (4) Essential (primary) hypertension Status: Acute (5) Hypoglycemia associated with diabetes Status: Acute (6) Pneumonia involving left lung Status: Acute (7) Type 2 diabetes mellitus Status: Acute DS: Medications - Discharge Medications Prescriptions: amoxicillin-pot clavulanate [Augmentin] 1 tab PO Q12H #10 tab insulin asp prt-insulin aspart [Novolog Mix 70-30 U-100 Insuln] 20 unit SUBCUT BID #1 vial sacubitril-valsartan [Entresto] 1 tab PO BID #60 tab DS: Summary Hospital Course: 62-year-old female admitted with hypoglycemia, sepsis secondary to pneumonia. Evaluation and treatment course detailed below: Hypoglycemia/type 2 diabetes: Patient reportedly took insulin and did not eat. Her hemoglobin A1c is 8. I advised her to decrease the dose of insulin and provide the diabetic education. She normally takes NovoLog 20 units in the morning and 40 units at night. She was advised to decrease to 20 units in a.m. and 20 units at night. Acute encephalopathy: Probably secondary to hypoglycemia. Pneumonia symptoms mild. Her symptoms completely resolved. Pneumonia: Mild. Patient was initially treated with broad-spectrum antibiotics. She was discharged on Augmentin for a few more days. ESBL E. coli in the urine: The patient makes minimal amount of urine. She is asymptomatic from that standpoint. I believe this is colonization rather than true urinary tract infection. At this time she can be monitored without antibiotics for this condition. Discussed with district associate judge and ID colleague. End-stage renal disease on hemodialysis: The patient was followed by nephrology and underwent hemodialysis treatment as scheduled. She is to follow-up outpatient. Hypertension: Home medications were continued. - Time Spent with Patient Total time spent providing and/or coordinating discharge services: Greater than 30 minutes - Quality: VTE Deep Vein Thrombosis/Pulmonary Embolism Present on Admission: No Exam Vital signs: Vital Signs 07/16/18 16:00 07/16/18 20:00 07/17/18 00:00 Temperature 98.0 F 99.3 F 98.8 F Pulse Rate 87 92 H 92 H Respiratory Rate 14 19 17 Blood Pressure 167/70 H 161/69 H 140/65 Pulse Oximetry 100 95 97 07/17/18 00:30 07/17/18 00:45 07/17/18 01:00 Temperature Pulse Rate 81 80 81 Respiratory Rate 14 13 14 Blood Pressure 140/63 132/60 Pulse Oximetry 95 97 97 07/17/18 01:15 07/17/18 01:30 07/17/18 01:45 Temperature Pulse Rate 80 79 80 Respiratory Rate 13 13 13 Blood Pressure 140/61 Pulse Oximetry 100 95 94 L 07/17/18 02:00 07/17/18 02:15 07/17/18 02:30 Temperature Pulse Rate 77 79 80 Respiratory Rate 14 13 15 Blood Pressure 135/56 L 140/63 Pulse Oximetry 94 L 95 95 07/17/18 02:45 07/17/18 03:00 07/17/18 03:15 Temperature Pulse Rate 79 80 83 Respiratory Rate 13 17 13 Blood Pressure 130/58 L Pulse Oximetry 97 100 97 07/17/18 03:30 07/17/18 03:45 07/17/18 04:00 Temperature 98.4 F Pulse Rate 87 92 H 96 H Respiratory Rate 13 54 H 37 H Blood Pressure 148/60 H 181/89 H Pulse Oximetry 99 82 L 99 07/17/18 04:03 07/17/18 04:15 07/17/18 04:30 Temperature Pulse Rate 89 84 88 Respiratory Rate 33 H 34 H 34 H Blood Pressure 183/77 H 181/89 H Pulse Oximetry 99 89 L 86 L 07/17/18 04:41 07/17/18 04:45 07/17/18 05:00 Temperature Pulse Rate 89 88 86 Respiratory Rate 22 32 H 7 L Blood Pressure 179/77 H 161/67 H Pulse Oximetry 97 07/17/18 05:15 07/17/18 05:30 07/17/18 05:45 Temperature Pulse Rate 86 88 87 Respiratory Rate 14 14 14 Blood Pressure 157/66 H Pulse Oximetry 97 97 07/17/18 06:00 07/17/18 06:15 07/17/18 06:30 Temperature Pulse Rate 87 88 89 Respiratory Rate 14 16 12 Blood Pressure 153/65 H 156/66 H Pulse Oximetry 99 98 98 07/17/18 06:45 07/17/18 07:00 07/17/18 07:15 Temperature Pulse Rate 86 86 85 Respiratory Rate 12 12 12 Blood Pressure 150/63 H Pulse Oximetry 98 99 99 07/17/18 07:23 07/17/18 07:30 07/17/18 07:45 Temperature Pulse Rate 92 H 82 Respiratory Rate 8 L 13 Blood Pressure 161/70 H Pulse Oximetry 99 97 100 07/17/18 08:00 Temperature 97.6 F Pulse Rate 83 Respiratory Rate 15 Blood Pressure 158/66 H Pulse Oximetry 99 Intake & Output 07/16/18 07/17/18 07/17/18 18:59 06:59 18:59 Intake Total 50 / 50 390 / 390 Output Total 3100 / 3100 Balance -3050 / -3050 390 / 390 Weight 77.5 kg Intake: IV 50 / 50 150 / 150 Zosyn 2.25 GM Premix 50 ML @ 50 / 50 50 / 50 100 mls/hr IV.SIG Q12H ZANE Rx#: [id number] Vancomycin Inj 500 MG In NS Inj 100 / 100 100 ML @ 200 mls/hr IV.SIG ONCE ONE Rx#:[id number] Oral 240 / 240 Output: Urine 100 / 100 Hemodialysis Amount 3000 / 3000 Other: # Voids 1 Date of Last Bowel Movement 07/16/18 07/16/18 # Bowel Movements 1 0 Narrative: GENERAL: This is a well-nourished, well-developed patient, in no apparent distress. CARDIOVASCULAR: Normal rate and regular rhythm without murmurs, gallops, or rubs. RESPIRATORY: Good respiratory efforts. Breath sounds equal and clear to auscultation bilaterally. GASTROINTESTINAL: Abdomen soft, non-tender, non-distended. Normal active bowel sounds MUSCULOSKELETAL: Extremities without cyanosis, or edema. NEURO: Alert & Oriented x4 to person, place, time, situation. Moves all ext x4 PSYCH: Appropriate mood and affect. Results Procedures completed during hospitalization: None Labs on day of discharge: Labs from last 24 hours 07/17/18 07/17/18 07/17/18 07:49 03:32 03:32 WBC 7.7 RBC 4.15 Hgb 11.8 Hct 36.2 MCV 87.2 MCH 28.4 MCHC 32.6 RDW 14.5 Plt Count 180 MPV 9.4 Neut % (Auto) Lymph % (Auto) Hill % (Auto) Eos % (Auto) Baso % (Auto) Neut # (Auto) Lymph # (Auto) Hill # (Auto) Eos # (Auto) Baso # (Auto) WBC Differential Differential Comment PT INR APTT Sodium 137 Potassium 4.5 Chloride 98 Carbon Dioxide 26.3 Anion Gap 13 BUN 53 H Creatinine 8.73 H Estimated GFR 6 L POC Glucose 200 H Random Glucose 152 H Hemoglobin A1c Lactic Acid Calcium 7.9 L Prot Corrected Calcium Phosphorus Magnesium Total Bilirubin AST ALT Alkaline Phosphatase Total Protein Albumin Procalcitonin Random Vancomycin 26.3 07/16/18 07/16/18 07/16/18 20:16 17:59 13:32 WBC RBC Hgb Hct MCV MCH MCHC RDW Plt Count MPV Neut % (Auto) Lymph % (Auto) Hill % (Auto) Eos % (Auto) Baso % (Auto) Neut # (Auto) Lymph # (Auto) Hill # (Auto) Eos # (Auto) Baso # (Auto) WBC Differential Differential Comment PT INR APTT Sodium Potassium Chloride Carbon Dioxide Anion Gap BUN Creatinine Estimated GFR POC Glucose 309 H 279 H 119 H Random Glucose Hemoglobin A1c Lactic Acid Calcium Prot Corrected Calcium Phosphorus Magnesium Total Bilirubin AST ALT Alkaline Phosphatase Total Protein Albumin Procalcitonin Random Vancomycin 07/16/18 07/16/18 07/16/18 09:30 09:30 09:30 WBC RBC Hgb Hct MCV MCH MCHC RDW Plt Count MPV Neut % (Auto) Lymph % (Auto) Hill % (Auto) Eos % (Auto) Baso % (Auto) Neut # (Auto) Lymph # (Auto) Hill # (Auto) Eos # (Auto) Baso # (Auto) WBC Differential Differential Comment PT 10.8 INR 1.1 APTT 33.1 H Sodium 142 Potassium 5.2 H D Chloride 104 Carbon Dioxide 21.1 Anion Gap 17 H BUN 72 H Creatinine 11.24 H* D Estimated GFR 4 L POC Glucose Random Glucose 170 H Hemoglobin A1c 8.0 H Lactic Acid Calcium 7.2 L* Prot Corrected Calcium 7.5 L Phosphorus 6.7 H Magnesium 2.2 Total Bilirubin 0.5 AST 11 L ALT 16 Alkaline Phosphatase 102 Total Protein 6.6 D Albumin 2.6 L D Procalcitonin Random Vancomycin 18.3 07/16/1818 07/16/18 09:30 09:30 09:30 WBC 7.9 RBC 3.73 L Hgb 10.7 L Hct 33.2 L MCV 89.0 MCH 28.7 MCHC 32.2 RDW 14.2 Plt Count 172 MPV 9.0 Neut % (Auto) 77.9 H Lymph % (Auto) 10.3 Hill % (Auto) 9.1 H Eos % (Auto) 2.1 Baso % (Auto) 0.6 Neut # (Auto) 6.1 Lymph # (Auto) 0.8 L Hill # (Auto) 0.7 Eos # (Auto) 0.2 Baso # (Auto) 0.0 WBC Differential . Differential Comment Auto diff final PT INR APTT Sodium Potassium Chloride Carbon Dioxide Anion Gap BUN Creatinine Estimated GFR POC Glucose Random Glucose Hemoglobin A1c Lactic Acid 0.7 Calcium Prot Corrected Calcium Phosphorus Magnesium Total Bilirubin AST ALT Alkaline Phosphatase Total Protein Albumin Procalcitonin 0.22 H Random Vancomycin 07/16/18 09:23 WBC RBC Hgb Hct MCV MCH MCHC RDW Plt Count MPV Neut % (Auto) Lymph % (Auto) Hill % (Auto) Eos % (Auto) Baso % (Auto) Neut # (Auto) Lymph # (Auto) Hill # (Auto) Eos # (Auto) Baso # (Auto) WBC Differential Differential Comment PT INR APTT Sodium Potassium Chloride Carbon Dioxide Anion Gap BUN Creatinine Estimated GFR POC Glucose 174 H Random Glucose Hemoglobin A1c Lactic Acid Calcium Prot Corrected Calcium Phosphorus Magnesium Total Bilirubin AST ALT Alkaline Phosphatase Total Protein Albumin Procalcitonin Random Vancomycin Preliminary micro results at discharge 07/15/18 01:20 Aerobic Blood Culture - Preliminary Blood - Peripheral No growth in 1 day Anaerobic Blood Culture - Preliminary No growth in 1 day 07/15/18 01:15 Aerobic Blood Culture - Preliminary Blood - Peripheral No growth in 1 day Anaerobic Blood Culture - Preliminary No growth in 1 day - Impressions ITS Impressions Chest X-Ray 07/15/18 01:09 CONCLUSION: Atelectasis versus early/mild pneumonia of the left base. Head CT 07/15/18 01:09 CONCLUSION: 1. No acute intracranial abnormality. 2. Chronic white matter changes. . Discharge Plan - Discharge Disposition Patient Disposition: Discharge Home - Discharge Condition Condition: Good - Discharge Order Discharge Orders: Discharge Order (Routine); Ordered 07/17/18 Ordered By: Melody Mendoza - Physicians Team Primary Care Provider: UNKNOWN, Attending Provider: Melody Mendoza Other Providers: Jovi Major MD
--- NOTE | 2018-07-17 09:51 | P.PNNP ---
Subjective Interval history: Doing well. Underwent dialysis yesterday. No fever, no chills. Wants to be discharge. Physical Exam Vital signs: Vital Signs 07/16/18 16:00 07/16/18 20:00 07/17/18 00:00 Temperature 98.0 F 99.3 F 98.8 F Pulse Rate 87 92 H 92 H Respiratory Rate 14 19 17 Blood Pressure 167/70 H 161/69 H 140/65 Pulse Oximetry 100 95 97 07/17/18 00:30 07/17/18 00:45 07/17/18 01:00 Temperature Pulse Rate 81 80 81 Respiratory Rate 14 13 14 Blood Pressure 140/63 132/60 Pulse Oximetry 95 97 97 07/17/18 01:15 07/17/18 01:30 07/17/18 01:45 Temperature Pulse Rate 80 79 80 Respiratory Rate 13 13 13 Blood Pressure 140/61 Pulse Oximetry 100 95 94 L 07/17/18 02:00 07/17/18 02:15 07/17/18 02:30 Temperature Pulse Rate 77 79 80 Respiratory Rate 14 13 15 Blood Pressure 135/56 L 140/63 Pulse Oximetry 94 L 95 95 07/17/18 02:45 07/17/18 03:00 07/17/18 03:15 Temperature Pulse Rate 79 80 83 Respiratory Rate 13 17 13 Blood Pressure 130/58 L Pulse Oximetry 97 100 97 07/17/18 03:30 07/17/18 03:45 07/17/18 04:00 Temperature 98.4 F Pulse Rate 87 92 H 96 H Respiratory Rate 13 54 H 37 H Blood Pressure 148/60 H 181/89 H Pulse Oximetry 99 82 L 99 07/17/18 04:03 07/17/18 04:15 07/17/18 04:30 Temperature Pulse Rate 89 84 88 Respiratory Rate 33 H 34 H 34 H Blood Pressure 183/77 H 181/89 H Pulse Oximetry 99 89 L 86 L 07/17/18 04:41 07/17/18 04:45 07/17/18 05:00 Temperature Pulse Rate 89 88 86 Respiratory Rate 22 32 H 7 L Blood Pressure 179/77 H 161/67 H Pulse Oximetry 97 07/17/18 05:15 07/17/18 05:30 07/17/18 05:45 Temperature Pulse Rate 86 88 87 Respiratory Rate 14 14 14 Blood Pressure 157/66 H Pulse Oximetry 97 97 09/25/18 06:00 07/17/18 06:15 07/17/18 06:30 Temperature Pulse Rate 87 88 89 Respiratory Rate 14 16 12 Blood Pressure 153/65 H 156/66 H Pulse Oximetry 99 98 98 07/17/18 06:45 07/17/18 07:00 07/17/18 07:15 Temperature Pulse Rate 86 86 85 Respiratory Rate 12 12 12 Blood Pressure 150/63 H Pulse Oximetry 98 99 99 07/17/18 07:23 07/17/18 07:30 07/17/18 07:45 Temperature Pulse Rate 92 H 82 Respiratory Rate 8 L 13 Blood Pressure 161/70 H Pulse Oximetry 99 97 100 07/17/18 08:00 Temperature 97.6 F Pulse Rate 83 Respiratory Rate 15 Blood Pressure 158/66 H Pulse Oximetry 99 Intake & Output 07/16/18 07/17/18 07/17/18 18:59 06:59 18:59 Intake Total 50 / 50 390 / 390 Output Total 3100 / 3100 Balance -3050 / -3050 390 / 390 Weight 77.5 kg Intake: IV 50 / 50 150 / 150 Zosyn 2.25 GM Premix 50 ML @ 50 / 50 50 / 50 100 mls/hr IV.SIG Q12H ZANE Rx#: [id number] Vancomycin Inj 500 MG In NS Inj 100 / 100 100 ML @ 200 mls/hr IV.SIG ONCE ONE Rx#:[id number] Oral 240 / 240 Output: Urine 100 / 100 Hemodialysis Amount 3000 / 3000 Other: # Voids 1 Date of Last Bowel Movement 07/16/18 07/16/18 # Bowel Movements 1 0 Narrative: GENERAL: This is a well-nourished, well-developed patient, in no apparent distress. CARDIOVASCULAR: Normal rate and regular rhythm without murmurs, gallops, or rubs. RESPIRATORY: Good respiratory efforts. Breath sounds equal and clear to auscultation bilaterally. GASTROINTESTINAL: Abdomen soft, non-tender, non-distended. Normal active bowel sounds MUSCULOSKELETAL: Extremities without cyanosis, or edema. NEURO: Alert & Oriented x4 to person, place, time, situation. Moves all ext x4 PSYCH: Appropriate mood and affect. Assessment and Plan - Assessment (1) ESRD (end stage renal disease) on dialysis Code(s): N18.6 - End stage renal disease; Z99.2 - Dependence on renal dialysis Status: Acute Plan: Usually undergoes dialysis MWF. Dialysis done yesterday. Monitor fluid and electrolytes. (2) Encephalopathy acute Code(s): G93.40 - Encephalopathy, unspecified Status: Acute Plan: due to hypoglycemia. Makes only about 100 ml of urine. Unclear if she has UTI. May be a contaminant. Discussed with hospitalist. (3) Type 2 diabetes mellitus Code(s): E11.9 - Type 2 diabetes mellitus without complications Status: Acute Plan: Admitted with hypoglycemia. Now hypoglycemia has resolved. She may need to modify her insulin regimen. She takes Humalog 75/25 twice daily on a sliding scale, may need to take less. (4) Essential (primary) hypertension Code(s): I10 - Essential (primary) hypertension Status: Acute Plan: BP has been high. Restart her home medications which include Metoprolol and Entresto. - Attending Attestation Patient can be discharged from renal standpoint.
[2018-07-17 10:03] VITALS: PULSE 81
== END 2018-07-17 12:05 | disposition home or self-care (01) ==
LOC: NEPC 01:02 → NEDA 03:29 → HIMC 05:50
PROVIDERS: ADMIT Family Medicine; ATTEND Family Medicine